=== PATIENT | female | born 1965 ===

== ENCOUNTER 2017-04-13 15:51 | Inpatient (IN) | payer MEDICAID, OTHER ==
[2017-04-13] MEDS ORDERED: Phenylephrine 10 mg/ml Inj ONE (16:09)
--- NOTE | 2017-04-13 16:16 | CP.PCM.PN ---
Subjective - Date & Time of Evaluation Date of Evaluation: 04/13/17 Time of Evaluation: 04:10 - Subjective Subjective: Code heart called/activated and Dr. Leahy was called. 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 This is the first time she has had this type of chest pain. Past medical history of diabetes and hypertension. She takes lisinopril and metformin at home. She denies family history of heart disease and states she has never had an [place] or cardiac problems in the past. She has never had a stress test in the past. No PMD. Denies drugs, tobacco, or alcohol use. EKG showed St elevations in the inferior leads. Patient was given fluids and loaded with heparin and brilinita. Patient noted to be hypotensive and bradycardic. She was given a dose of atropine. Fluid bolus started. Patient was taken to the skill labor for further intervention. Dr. Leahy was present in the skill labor.
[2017-04-13 16:20] LABS: BASO # 0.1 K/uL (0.0-0.2); BASO % 0.7 % (0.0-2.0); EOS # 0.1 K/uL (0.0-0.7); HEMOGLOBIN 13.7 g/dL (11.0-16.0); LYMPH # 4.1 K/uL (1.0-4.3); LYMPH % 30.5 % (20.0-40.0); MEAN CELL VOLUME 87.9 fL (81.0-99.0); MEAN CORPUSCULAR HGB CONC 34.2 g/dL (33.0-37.0); MEAN PLATELET VOLUME 9.3 fL (7.2-11.7); MONO # 1.3 K/uL (0.0-0.8); MONO % 9.5 % (0.0-10.0); NEUT # 7.8 K/uL (1.8-7.0); NEUT % 58.3 % (50.0-75.0); RBC 4.58 Mil/uL (3.80-5.20); RED CELL DISTRIBUTION WIDTH 13.9 % (11.5-14.5); WHITE BLOOD COUNT 13.3 K/uL (4.8-10.8)
[2017-04-13 16:24] LABS: ALBUMIN 3.9 g/dL (3.5-5.0)
[2017-04-13 16:27] LABS: ALB/GLOB RATIO 1.2 (1.0-2.1); AST/SGOT 18 U/L (14-36); BLOOD UREA NITROGEN 16 mg/dL (7-17); GFR AFRICAN-AMERICAN > 60; GFR NON-AFRICAN AMERICAN 52; INR 0.9; PROTHROMBIN TIME 10.4 SECONDS (9.7-12.2)
[2017-04-13 16:28] LABS: ALT/SGPT 32 U/L (9-52); CALCIUM 9.6 mg/dl (8.6-10.4); HDL CHOLESTEROL 33 mg/dL (30-70)
[2017-04-13] MEDS ORDERED: Lidocaine 2% Inj (20ml) ONE ×2 (16:32→16:34)
[2017-04-13] MEDS ORDERED: Iodixanol 320 MG/ML 200 ML BOTTLE IV ONE ×2 (16:35)
[2017-04-13 16:40] LABS: LDL CHOLESTEROL 207 mg/dL (0-129)
[2017-04-13 16:41] LABS: CK-MB 1.45 ng/mL (0.0-3.38)
--- NOTE | 2017-04-13 17:17 | C.PDOC ---
History Of Present Illness 52 year old female was brought to the ED by EMS with complaints of 8/10 chest pain beginning just prior to arrival. 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 EMS denies trauma or injury. Chief Complaint (Nursing): Chest Pain History Per: EMS History/Exam Limitations: no limitations Onset/Duration Of Symptoms: Mins Current Symptoms Are (Timing): Still Present Severity: Severe Pain Scale Rating Of: 8 Quality: "Pain" Associated Symptoms: denies: Nausea, Dyspnea, Diaphoresis, Syncope Recent travel outside of the [place]: No Past Medical History Reviewed: Historical Data, Nursing Documentation, Vital Signs Vital Signs: Last Vital Signs Temp 97.9 F 04/13/17 20:00 Pulse 71 04/13/17 23:40 Resp 19 04/13/17 23:40 BP 112/66 04/13/17 23:40 Pulse Ox 100 04/13/17 23:40 - Medical History PMH: HTN Family History: States: Unknown Family Hx - Social History Hx Alcohol Use: No Hx Substance Use: No - Immunization History Hx Tetanus Toxoid Vaccination: No Hx Influenza Vaccination: No Hx Pneumococcal Vaccination: No Review Of Systems Constitutional: Negative for: Fever, Chills Cardiovascular: Positive for: Chest Pain Physical Exam - Physical Exam Appears: Non-toxic, Other (Mild distress with waxing and waning chest pain ) Skin: Warm, Dry Head: Atraumatic Eye(s): bilateral: Normal Inspection, PERRL, EOMI Oral Mucosa: Moist Chest: Symmetrical, No Deformity Cardiovascular: Other (Patient is bradycardic with typical inferior wall changes ) Respiratory: Normal Breath Sounds, No Rhonchi, No Wheezing Gastrointestinal/Abdominal: Soft, No Tenderness, No Distention, No Guarding, No Rebound Neurological/Psych: Oriented x3 ED Course And Treatment - Laboratory Results Result Diagrams: 04/13/17 18:10 04/13/17 18:10 Lab Interpretation: Abnormal (+ leukocytosis, elev glu, trop neg.) ECG: Interpreted By Ks ECG Rhythm: ST/T Changes (+ acute STEMI inferior leads with reciprocal changes) ECG Interpretation: Abnormal Rate From EC O2 Sat by Pulse Oximetry: 99 Pulse Ox Interpretation: Normal Progress Note: Code Heart activated at 15:55pm. Spoke to Dr. Leahy at 16:05pm. Protocol was followed and patient left for [facility] at 16:20pm. Reevaluation Time: 16:20 Reassessment Condition: Unchanged (remains stable, moved to Cardiac [facility]) Medical Decision Making Medical Decision Making: acute IWMI Disposition Doctor Will See Patient In The: Hospital Counseled Patient/Family Regarding: Studies Performed, Diagnosis - Disposition Disposition: HOSPITALIZED Disposition Time: 16:30 Condition: CRITICAL - Clinical Impression Clinical Impression: Acute myocardial infarction - Scribe Statement The provider has reviewed the documentation as recorded by the Scrib[facility] [place] All medical record entries made by the Lev were at my direction and personally dictated by me. I have reviewed the chart and agree that the record accurately reflects my personal performance of the history, physical exam, medical decision making, and the department course for this patient. I have also personally directed, reviewed, and agree with the discharge instructions and disposition.
[2017-04-13] MEDS ORDERED: DOPamine 400mg/250ml D5W 400 MG/250 ML BAG IV ONE (17:34)
[2017-04-13] MEDS ORDERED: Sodium Chloride 0.9% 1,000 ML IV SCH (18:00)
[2017-04-13] MEDS ORDERED: Iodixanol 320 MG/ML 100 ML BOTTLE IV ONE ×2 (18:14→18:36)
[2017-04-13 18:15] LABS: HEMOGLOBIN 12.2 g/dL (11.0-16.0); MEAN CELL VOLUME 89.6 fL (81.0-99.0); MEAN CORPUSCULAR HEMOGLOBIN 28.9 pg (27.0-31.0); MEAN CORPUSCULAR HGB CONC 32.2 g/dL (33.0-37.0); MEAN PLATELET VOLUME 9.1 fL (7.2-11.7); RBC 4.22 Mil/uL (3.80-5.20); RED CELL DISTRIBUTION WIDTH 14.1 % (11.5-14.5); WHITE BLOOD COUNT 24.9 K/uL (4.8-10.8)
[2017-04-13] MEDS ORDERED: Midazolam 2 MG/2 ML VIAL ONE (18:15)
[2017-04-13 18:22] LABS: ALBUMIN 2.9 g/dL (3.5-5.0)
[2017-04-13 18:25] LABS: ALB/GLOB RATIO 1.1 (1.0-2.1); AST/SGOT 74 U/L (14-36); GFR AFRICAN-AMERICAN > 60; GFR NON-AFRICAN AMERICAN > 60
[2017-04-13 18:26] LABS: ALT/SGPT 71 U/L (9-52); BLOOD UREA NITROGEN 15 mg/dL (7-17); CALCIUM 7.5 mg/dl (8.6-10.4); MAGNESIUM 1.6 mg/dL (1.6-2.3)
[2017-04-13] MEDS ORDERED: Eptifibatide 0.75 mg/ml 75 MG/100 ML BOTTLE IV ONE (19:38)
[2017-04-13] MEDS ORDERED: Eptifibatide 20 mg/10mL Inj IVP ONE (19:38)
[2017-04-13] MEDS: Eptifibatide 0.75 mg/ml 75 MG/100 ML BOTTLE IV SCH (20:00)
[2017-04-13 20:34] VITALS: BMI 27.9
--- NOTE | 2017-04-13 21:06 | CP.PCM.CON ---
History of Present Illness - History of Present Illness History of Present Illness: PCP: None Reason for Consult: Critical care Management The Patient is being seen in the ICU post cardiac Cath. HPI: 52 years old Sinhala Female with hx of DM II, and HTN brought to the ED by the EMS with sudden unset of sharp, severe 8/10 intensity, left sided chest pain radiating down the left arm and associated with diaphoresis and SOB. The patient was working at a [employer] in [place] after immigrating from [place] recently. In The ED the patient was found to be Bradycardic in complete heart block with HR of 36/min and Hypotensive with BP of 67/42mmHg. Code heart was called because the EKG showed elevated ST in the inferior leads indicating an inferior wall STEMI. She was transferred direct to the lab scientist where cardiac cath was done by Dr Stark . The Main RCA was found to be 100% occluded and a stent was placed. The patient later developed Bradycardia with Hypotension and had to be taken back to the blood bank laboratory technician from recovery where a larger stent had to be placed and a transvenious pacemaker inserted. 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 absent: Blurred Vision, Diplopia, Floaters Ears: absent: Decreased Hearing, Ear Discharge, Ear Pain, Tinnitus Nose/Mouth/Throat: absent: Epistaxis, Nasal Congestion, Nasal Discharge, Nasal Obstruction, Nasal Trauma, Sinus Pain, Sinus Pressure - Cardiovascular Cardiovascular: Chest Pain, Diaphoresis, Dyspnea. absent: Edema, Orthopnea, Palpitations - Respiratory Respiratory: Dyspnea. absent: Cough, Wheezing, Stridor - Gastrointestinal Gastrointestinal: absent: Abdominal Pain, Constipation, Diarrhea, Nausea, Vomiting - Genitourinary Genitourinary: absent: Dysuria, Flank Pain, Hematuria, Urinary Frequency - Musculoskeletal Musculoskeletal: absent: Arthralgias, Joint Swelling, Muscle Weakness, Numbness - Integumentary Integumentary: absent: Pruritus, Rash, Skin Ulcer, Sores, Striae, Swelling - Neurological Neurological: absent: Confusion, Numbness, Focal Weakness, Tremor, Weakness - Psychiatric Psychiatric: absent: Anxiety, Depression, Panic Attacks - Endocrine Endocrine: absent: Palpitations, Polydipsia, Polyphagia, Polyuria - Hematologic/Lymphatic Hematologic: absent: Easy Bleeding, Easy Bruising Past Patient History - Infectious Disease Hx of Infectious Diseases: None - Past Medical History & Family History Past Medical History?: Yes - Past Social History Smoking Status: Never Smoked Chewing Tobacco Use: No Cigar Use: No Alcohol: None Drugs: Denies Home Situation {Lives}: With Family - CARDIAC Hx Hypertension: Yes - PULMONARY Hx Respiratory Disorders: No - NEUROLOGICAL Hx Neurological Disorder: No - HEENT Hx HEENT Problems: No - RENAL Hx Chronic Kidney Disease: No - ENDOCRINE/METABOLIC Hx Diabetes Mellitus Type 2: Yes - HEMATOLOGICAL/ONCOLOGICAL Hx Blood Disorders: No - INTEGUMENTARY Hx Dermatological Problems: No - MUSCULOSKELETAL/RHEUMATOLOGICAL Hx Musculoskeletal Disorders: No - GASTROINTESTINAL Hx Gastrointestinal Disorders: No - GENITOURINARY/GYNECOLOGICAL Hx Genitourinary Disorders: No - PSYCHIATRIC Hx Psychophysiologic Disorder: No Hx Substance Use: No - SURGICAL HISTORY Hx Surgeries: No - ANESTHESIA Hx Anesthesia: No Meds Allergies/Adverse Reactions: Allergies Allergy/AdvReac Type Severity Reaction Status Date / Time No Known Allergies Allergy Unverified 04/13/17 15:58 - Medications Medications: Current Medications Enalapril Maleate (Vasotec) 2.5 mg PO DAILY [facility] Sodium Chloride (Sodium Chloride 0.9%) 1,000 mls @ 30 mls/hr IV .Q24H [facility] Last Admin: 04/13/17 20:00 Dose: 30 mls/hr Eptifibatide (Integrilin) 75 mg in 100 mls @ 11.6 mls/hr IV .Q8H38M [facility] Stop: 04/14/17 19:16 Last Admin: 04/13/17 20:00 Dose: 11.6 mls/hr Insulin Human Regular (Novolin R) 0 unit SC ACHS [facility] PRN Reason: Protocol Rosuvastatin Calcium (Crestor) 5 mg PO HS [facility] Ticagrelor (Brilinta) 90 mg PO BID [facility] Last Admin: 04/13/17 20:00 Dose: Not Given Physical Exam - Constitutional Appears: No Acute Distress - Head Exam Head Exam: ATRAUMATIC, NORMAL INSPECTION, NORMOCEPHALIC - Eye Exam Eye Exam: EOMI, Normal appearance Pupil Exam: NORMAL ACCOMODATION, PERRL - ENT Exam ENT Exam: Mucous Membranes Moist, Normal Exam, Normal External Ear Exam, Normal Oropharynx - Neck Exam Neck exam: Positive for: Full Rom, Normal Inspection. Negative for: Lymphadenopathy, Tenderness - Respiratory Exam Respiratory Exam: Clear to Auscultation Bilateral. absent: Rales, Rhonchi, Wheezes - Cardiovascular Exam Cardiovascular Exam: REGULAR RHYTHM, RRR, +S1, +S2. absent: Gallop, Rubs - GI/Abdominal Exam GI & Abdominal Exam: Normal Bowel Sounds, Soft. absent: Mass, Organomegaly, Tenderness - Rectal Exam Rectal Exam: Deferred - Extremities Exam Extremities exam: Positive for: full ROM, normal inspection. Negative for: calf tenderness, pedal edema - Back Exam Back exam: NORMAL INSPECTION. absent: CVA tenderness (L), CVA tenderness (R) - Neurological Exam Neurological exam: Alert, CN II-XII Intact, Oriented x3, Reflexes Normal - Psychiatric Exam Psychiatric exam: Normal Affect, Normal Mood - Skin Skin Exam: Dry, Intact, Normal Color, Warm Results - Vital Signs Recent Vital Signs: Last Vital Signs Temp 97.3 F L 04/13/17 16:02 Pulse 36 L 04/13/17 16:02 Resp 16 04/13/17 16:02 BP 67/40 L 04/13/17 16:02 Pulse Ox 99 04/13/17 17:21 - Labs Result Diagrams: 04/13/17 18:10 04/13/17 18:10 Labs: Laboratory Results - last 24 hr 04/13/17 04/13/17 04/13/17 17:34 18:10 18:10 WBC 24.9 H D RBC 4.22 Hgb 12.2 Hct 37.8 MCV 89.6 MCH 28.9 MCHC 32.2 L RDW 14.1 Plt Count 268 MPV 9.1 Sodium 135 Potassium 4.8 Chloride 107 Carbon Dioxide 15 L Anion Gap 18 BUN 15 Creatinine 0.9 Est GFR ( Amer) > 60 Est GFR (Non-Af Amer) > 60 POC Glucose (mg/dL) 251 H Random Glucose 262 H Calcium 7.5 L Phosphorus 4.0 Magnesium 1.6 Total Bilirubin 0.5 AST 74 H D ALT 71 H D Alkaline Phosphatase 64 Troponin I 0.0900 Total Protein 5.6 L Albumin 2.9 L D Globulin 2.6 Albumin/Globulin Ratio 1.1 - EKG Data EKG comments: Complete Heart block 37/min with ST elevation in leads II, III, aVL - Impressions Impression: Acute inferior wall CA Assessment & Plan - Assessment and Plan (Free Text) Plan: #. Acute inferior wall STEMI with 100% stenosis RCA s/p Cardiac cath and stent placement 04/14/17 - Cardiology Dr Leahy on Consult - Continue Integrilin/ Brilinta and Crestor as per cardiology - Follow ECHO - Serial Tropon - Morphine for Pain #. Complete Heart Block with bradycardia and Hypotension due to the Acute CA s/ p transvenous pacemaker placed. - Cardiac monitoring In ICU #. DM II with Hypergycemia - HbA1c 8.2 - Liquid diet and restart Diabetic diabetic at breakfast - Regular insulin sliding scale according to accucheckl - Hold Metformin for 48hrs because of Dye used in cardiac cath - Follow Renal labs #. Neutrophylic Leukocytosis as as reaction to the CA - Follow CBC #. Hx of HTN but hypotensive because of the CA and Bradycardia. Now improved Blood pressure after the transvenous pacemaker has been inserted - Monitor BP #. DVT Prophylsaxis with SCD #. Code Status: Full - Date & Time Date: 04/13/17 Time: 21:05
[2017-04-13] MEDS ORDERED: (Novolin R) Insulin Human Regular 100 units/ml vial SC SCH (22:00)
[2017-04-13] MEDS: (Novolin R) Insulin Human Regular 100 units/ml vial SC SCH (22:00)
[2017-04-14] MEDS: Eptifibatide 0.75 mg/ml 75 MG/100 ML BOTTLE IV SCH ×5 (01:25→18:56)
[2017-04-14 04:04] LABS: BASO # 0.1 K/uL (0.0-0.2); BASO % 0.5 % (0.0-2.0); EOS # 0.1 K/uL (0.0-0.7); EOS % 0.5 % (0.0-4.0); LYMPH # 3.3 K/uL (1.0-4.3); LYMPH % 22.2 % (20.0-40.0); MEAN CELL VOLUME 88.4 fL (81.0-99.0); MEAN CORPUSCULAR HEMOGLOBIN 28.2 pg (27.0-31.0); MEAN CORPUSCULAR HGB CONC 31.9 g/dL (33.0-37.0); MEAN PLATELET VOLUME 9.5 fL (7.2-11.7); MONO # 1.5 K/uL (0.0-0.8); NEUT % 66.8 % (50.0-75.0); RBC 3.91 Mil/uL (3.80-5.20)
[2017-04-14 04:14] LABS: ALB/GLOB RATIO 1.1 (1.0-2.1); AST/SGOT 65 U/L (14-36); GFR AFRICAN-AMERICAN > 60; GFR NON-AFRICAN AMERICAN > 60
[2017-04-14 04:15] LABS: ALT/SGPT 73 U/L (9-52); BLOOD UREA NITROGEN 12 mg/dL (7-17); CALCIUM 7.7 mg/dl (8.6-10.4); MAGNESIUM 1.7 mg/dL (1.6-2.3)
[2017-04-14] MEDS: (Novolin R) Insulin Human Regular 100 units/ml vial SC SCH ×4 (08:09→21:30)
--- NOTE | 2017-04-14 08:14 | RAD ---
HISTORY: Acute PR s/p Cardiac cath and stenting COMPARISON: No prior. FINDINGS: LUNGS: Mild venous congestion. PLEURA: No significant pleural effusion identified, no pneumothorax apparent. CARDIOVASCULAR: Normal. OSSEOUS STRUCTURES: No significant abnormalities. VISUALIZED UPPER ABDOMEN: Normal. OTHER FINDINGS: None. IMPRESSION: Mild venous congestion.
--- NOTE | 2017-04-14 16:30 | CP.PCM.PN ---
Subjective - Date & Time of Evaluation Date of Evaluation: 04/14/17 Time of Evaluation: 11:00 - Subjective Subjective: Patient was seen and examined at bedside in ICU. Patient appears comfortable. Patient to doesn't completely of any chest pain. Objective - Vital Signs/Intake and Output Vital Signs (last 24 hours): Temp Pulse Resp BP Pulse Ox 97.4 F L 70 14 97/54 L 97 04/14/17 12:00 04/14/17 15:00 04/14/17 15:00 04/14/17 15:00 04/14/17 15:00 Intake and Output: 04/14/17 04/14/17 06:59 18:59 Intake Total 457.6 694.4 Output Total 1800 1355 Balance -1342.4 -660.6 - Medications Medications: Current Medications Enalapril Maleate (Vasotec) 2.5 mg PO DAILY [facility] Last Admin: 04/14/17 09:39 Dose: 2.5 mg Heparin Sodium (Porcine) (Heparin) 5,000 units SC Q12 [facility] Last Admin: 04/14/17 13:46 Dose: 5,000 units Sodium Chloride (Sodium Chloride 0.9%) 1,000 mls @ 30 mls/hr IV .Q24H [facility] Last Admin: 04/13/17 20:00 Dose: 30 mls/hr Eptifibatide (Integrilin) 75 mg in 100 mls @ 11.6 mls/hr IV .Q8H38M [facility] Stop: 04/14/17 19:16 Last Admin: 04/14/17 12:48 Dose: Not Given Insulin Human Regular (Novolin R) 0 unit SC ACHS [facility] PRN Reason: Protocol Rosuvastatin Calcium (Crestor) 5 mg PO HS [facility] Last Admin: 04/13/17 22:15 Dose: 5 mg Ticagrelor (Brilinta) 90 mg PO BID [facility] Last Admin: 04/14/17 09:39 Dose: 90 mg - Labs Labs: 04/14/17 04:01 04/14/17 04:01 PT 10.4 SECONDS (9.7-12.2) 04/13/17 16:09 INR 0.9 04/13/17 16:09 APTT 26 SECONDS (21-34) 04/13/17 16:09 - Head Exam Head Exam: ATRAUMATIC, NORMOCEPHALIC - Eye Exam Eye Exam: Normal appearance - ENT Exam ENT Exam: Mucous Membranes Moist - Neck Exam Neck Exam: Normal Inspection - Respiratory Exam Respiratory Exam: Clear to Ausculation Bilateral - Cardiovascular Exam Cardiovascular Exam: REGULAR RHYTHM, +S1, +S2 - GI/Abdominal Exam GI & Abdominal Exam: Soft. absent: Tenderness - Extremities Exam Extremities Exam: absent: Pedal Edema - Neurological Exam Neurological Exam: Alert, Oriented x3 Assessment and Plan (1) Acute myocardial infarction Assessment & Plan: Patient was a code heart. She is status post cardiac catheterization and PCI. Continue Brilinta. Patient is on Integrilin drip right now. Status: Acute (2) Hypertension Assessment & Plan: Blood pressures controlled on current medication. Patient is on enalapril. Status: Acute (3) Diabetes mellitus Assessment & Plan: Continue insulin sliding scale. Monitor blood sugars closely. Status: Acute (4) Hyperlipidemia Assessment & Plan: Patient is on Crestor. Status: Acute
--- NOTE | 2017-04-14 17:11 | CP.CCUPN ---
CCU Objective - Vital Signs / Intake & Output Vital Signs (Last 4 hours): Vital Signs Pulse Resp BP Pulse Ox 04/14/17 15:00 70 14 97/54 L 97 04/14/17 14:01 73 101/76 98 Intake and Output (Last 8hrs): Intake & Output 04/14/17 04/14/17 04/14/17 06:59 14:59 22:59 Intake Total 332.8 682.8 11.6 Output Total 1800 1155 200 Balance -1467.2 -472.2 -188.4 Intake: Intake, IV Amount 332.8 332.8 11.6 Right Antecubital 240 240 0 Right Wrist 92.8 92.8 11.6 Oral 350 Output: Urine 1800 1155 200 Urethral (Reyes) 1800 1155 Urine, Voided 200 - Medications Active Medications: Active Medications Generic Name Dose Route Start Last Admin Trade Name Freq PRN Reason Stop Dose Admin Enalapril Maleate 2.5 mg 04/14/17 10:00 04/14/17 09:39 Vasotec PO 2.5 mg DAILY ETHAN Administration Heparin Sodium (Porcine) 5,000 units 04/14/17 13:30 04/14/17 13:46 Heparin SC 5,000 units Q12 ETAHN Administration Sodium Chloride 1,000 mls @ 30 mls/hr 04/13/17 18:00 04/13/17 20:00 Sodium Chloride 0.9% IV 30 mls/hr .Q24H ETHAN Administration Eptifibatide 75 mg in 100 mls @ 11.6 mls/hr 04/13/17 19:15 04/14/17 12:48 Integrilin IV 04/14/17 19:16 Not Given .[id number] ETHAN Insulin Human Regular 0 unit 04/14/17 13:17 Novolin R SC ACHS ETHAN Protocol Rosuvastatin Calcium 5 mg 04/13/17 22:00 04/13/17 22:15 Crestor PO 5 mg HS ETHAN Administration Ticagrelor 90 mg 04/13/17 18:00 04/14/17 09:39 Brilinta PO 90 mg BID ETHAN Administration - Patient Studies Lab Studies: Lab Studies 04/14/17 04/14/17 04/14/17 Range/Units 15:57 11:23 11:01 WBC (4.8-10.8) K/uL RBC (3.80-5.20) Mil/uL Hgb (11.0-16.0) g/dL Hct (34.0-47.0) % MCV (81.0-99.0) fL MCH (27.0-31.0) pg MCHC (33.0-37.0) g/dL RDW (11.5-14.5) % Plt Count (130-400) K/uL MPV (7.2-11.7) fL Neut % (Auto) (50.0-75.0) % Lymph % (Auto) (20.0-40.0) % Nash % (Auto) (0.0-10.0) % Eos % (Auto) (0.0-4.0) % Baso % (Auto) (0.0-2.0) % Neut # (1.8-7.0) K/uL Lymph # (1.0-4.3) K/uL Nash # (0.0-0.8) K/uL Eos # (0.0-0.7) K/uL Baso # (0.0-0.2) K/uL Sodium (132-148) mmol/L Potassium (3.6-5.2) mmol/L Chloride (98-107) mmol/L Carbon Dioxide (22-30) mmol/L Anion Gap (10-20) BUN (7-17) mg/dL Creatinine (0.7-1.2) MG/DL Est GFR ( Amer) Est GFR (Non-Af Amer) POC Glucose (mg/dL) 162 H 210 H (65-110) mg/dL Random Glucose (65-105) mg/dL Calcium (8.6-10.4) mg/dl Phosphorus (2.5-4.5) mg/dL Magnesium (1.6-2.3) mg/dL Total Bilirubin (0.2-1.3) mg/dL AST (14-36) U/L ALT (9-52) U/L Alkaline Phosphatase (38-126) U/L Troponin I 3.4300 H* (0.00-0.120) ng/mL Total Protein (6.3-8.3) g/dL Albumin (3.5-5.0) g/dL Globulin (2.2-3.9) gm/dL Albumin/Globulin Ratio (1.0-2.1) 04/14/17 04/14/17 04/14/17 Range/Units 07:22 04:01 04:01 WBC 15.0 H (4.8-10.8) K/uL RBC 3.91 (3.80-5.20) Mil/uL Hgb 11.0 (11.0-16.0) g/dL Hct 34.5 (34.0-47.0) % MCV 88.4 (81.0-99.0) fL MCH 28.2 (27.0-31.0) pg MCHC 31.9 L (33.0-37.0) g/dL RDW 14.0 (11.5-14.5) % Plt Count 253 (130-400) K/uL MPV 9.5 (7.2-11.7) fL Neut % (Auto) 66.8 (50.0-75.0) % Lymph % (Auto) 22.2 (20.0-40.0) % Nash % (Auto) 10.0 (0.0-10.0) % Eos % (Auto) 0.5 (0.0-4.0) % Baso % (Auto) 0.5 (0.0-2.0) % Neut # 10.0 H (1.8-7.0) K/uL Lymph # 3.3 (1.0-4.3) K/uL Nash # 1.5 H (0.0-0.8) K/uL Eos # 0.1 (0.0-0.7) K/uL Baso # 0.1 (0.0-0.2) K/uL Sodium 137 (132-148) mmol/L Potassium 4.2 (3.6-5.2) mmol/L Chloride 104 (98-107) mmol/L Carbon Dioxide 21 L (22-30) mmol/L Anion Gap 16 (10-20) BUN 12 (7-17) mg/dL Creatinine 0.7 (0.7-1.2) MG/DL Est GFR ( Amer) > 60 Est GFR (Non-Af Amer) > 60 POC Glucose (mg/dL) 169 H (65-110) mg/dL Random Glucose 158 H (65-105) mg/dL Calcium 7.7 L (8.6-10.4) mg/dl Phosphorus 3.9 (2.5-4.5) mg/dL Magnesium 1.7 (1.6-2.3) mg/dL Total Bilirubin 0.5 (0.2-1.3) mg/dL AST 65 H (14-36) U/L ALT 73 H (9-52) U/L Alkaline Phosphatase 52 (38-126) U/L Troponin I 4.7700 H* (0.00-0.120) ng/mL Total Protein 5.6 L (6.3-8.3) g/dL Albumin 3.0 L (3.5-5.0) g/dL Globulin 2.6 (2.2-3.9) gm/dL Albumin/Globulin Ratio 1.1 (1.0-2.1) 04/13/17 04/13/17 04/13/17 Range/Units 21:20 18:10 18:10 WBC 24.9 H D (4.8-10.8) K/uL RBC 4.22 (3.80-5.20) Mil/uL Hgb 12.2 (11.0-16.0) g/dL Hct 37.8 (34.0-47.0) % MCV 89.6 (81.0-99.0) fL MCH 28.9 (27.0-31.0) pg MCHC 32.2 L (33.0-37.0) g/dL RDW 14.1 (11.5-14.5) % Plt Count 268 (130-400) K/uL MPV 9.1 (7.2-11.7) fL Neut % (Auto) (50.0-75.0) % Lymph % (Auto) (20.0-40.0) % Nash % (Auto) (0.0-10.0) % Eos % (Auto) (0.0-4.0) % Baso % (Auto) (0.0-2.0) % Neut # (1.8-7.0) K/uL Lymph # (1.0-4.3) K/uL Nash # (0.0-0.8) K/uL Eos # (0.0-0.7) K/uL Baso # (0.0-0.2) K/uL Sodium 135 (132-148) mmol/L Potassium 4.8 (3.6-5.2) mmol/L Chloride 107 (98-107) mmol/L Carbon Dioxide 15 L (22-30) mmol/L Anion Gap 18 (10-20) BUN 15 (7-17) mg/dL Creatinine 0.9 (0.7-1.2) MG/DL Est GFR ( Amer) > 60 Est GFR (Non-Af Amer) > 60 POC Glucose (mg/dL) 201 H (65-110) mg/dL Random Glucose 262 H (65-105) mg/dL Calcium 7.5 L (8.6-10.4) mg/dl Phosphorus 4.0 (2.5-4.5) mg/dL Magnesium 1.6 (1.6-2.3) mg/dL Total Bilirubin 0.5 (0.2-1.3) mg/dL AST 74 H D (14-36) U/L ALT 71 H D (9-52) U/L Alkaline Phosphatase 64 (38-126) U/L Troponin I 0.0900 (0.00-0.120) ng/mL Total Protein 5.6 L (6.3-8.3) g/dL Albumin 2.9 L D (3.5-5.0) g/dL Globulin 2.6 (2.2-3.9) gm/dL Albumin/Globulin Ratio 1.1 (1.0-2.1) 04/13/17 Range/Units 17:34 WBC (4.8-10.8) K/uL RBC (3.80-5.20) Mil/uL Hgb (11.0-16.0) g/dL Hct (34.0-47.0) % MCV (81.0-99.0) fL MCH (27.0-31.0) pg MCHC (33.0-37.0) g/dL RDW (11.5-14.5) % Plt Count (130-400) K/uL MPV (7.2-11.7) fL Neut % (Auto) (50.0-75.0) % Lymph % (Auto) (20.0-40.0) % Nash % (Auto) (0.0-10.0) % Eos % (Auto) (0.0-4.0) % Baso % (Auto) (0.0-2.0) % Neut # (1.8-7.0) K/uL Lymph # (1.0-4.3) K/uL Nash # (0.0-0.8) K/uL Eos # (0.0-0.7) K/uL Baso # (0.0-0.2) K/uL Sodium (132-148) mmol/L Potassium (3.6-5.2) mmol/L Chloride (98-107) mmol/L Carbon Dioxide (22-30) mmol/L Anion Gap (10-20) BUN (7-17) mg/dL Creatinine (0.7-1.2) MG/DL Est GFR ( Amer) Est GFR (Non-Af Amer) POC Glucose (mg/dL) 251 H (65-110) mg/dL Random Glucose (65-105) mg/dL Calcium (8.6-10.4) mg/dl Phosphorus (2.5-4.5) mg/dL Magnesium (1.6-2.3) mg/dL Total Bilirubin (0.2-1.3) mg/dL AST (14-36) U/L ALT (9-52) U/L Alkaline Phosphatase (38-126) U/L Troponin I (0.00-0.120) ng/mL Total Protein (6.3-8.3) g/dL Albumin (3.5-5.0) g/dL Globulin (2.2-3.9) gm/dL Albumin/Globulin Ratio (1.0-2.1) Laboratory Results - last 24 hr 04/13/17 04/13/17 04/13/17 17:34 18:10 18:10 WBC 24.9 H D RBC 4.22 Hgb 12.2 Hct 37.8 MCV 89.6 MCH 28.9 MCHC 32.2 L RDW 14.1 Plt Count 268 MPV 9.1 Neut % (Auto) Lymph % (Auto) Nash % (Auto) Eos % (Auto) Baso % (Auto) Neut # Lymph # Nash # Eos # Baso # Sodium 135 Potassium 4.8 Chloride 107 Carbon Dioxide 15 L Anion Gap 18 BUN 15 Creatinine 0.9 Est GFR ( Amer) > 60 Est GFR (Non-Af Amer) > 60 POC Glucose (mg/dL) 251 H Random Glucose 262 H Calcium 7.5 L Phosphorus 4.0 Magnesium 1.6 Total Bilirubin 0.5 AST 74 H D ALT 71 H D Alkaline Phosphatase 64 Troponin I 0.0900 Total Protein 5.6 L Albumin 2.9 L D Globulin 2.6 Albumin/Globulin Ratio 1.1 04/13/17 04/14/17 04/14/17 21:20 04:01 04:01 WBC 15.0 H RBC 3.91 Hgb 11.0 Hct 34.5 MCV 88.4 MCH 28.2 MCHC 31.9 L RDW 14.0 Plt Count 253 MPV 9.5 Neut % (Auto) 66.8 Lymph % (Auto) 22.2 Nash % (Auto) 10.0 Eos % (Auto) 0.5 Baso % (Auto) 0.5 Neut # 10.0 H Lymph # 3.3 Nash # 1.5 H Eos # 0.1 Baso # 0.1 Sodium 137 Potassium 4.2 Chloride 104 Carbon Dioxide 21 L Anion Gap 16 BUN 12 Creatinine 0.7 Est GFR ( Amer) > 60 Est GFR (Non-Af Amer) > 60 POC Glucose (mg/dL) 201 H Random Glucose 158 H Calcium 7.7 L Phosphorus 3.9 Magnesium 1.7 Total Bilirubin 0.5 AST 65 H ALT 73 H Alkaline Phosphatase 52 Troponin I 4.7700 H* Total Protein 5.6 L Albumin 3.0 L Globulin 2.6 Albumin/Globulin Ratio 1.1 04/14/17 04/14/17 04/14/17 07:22 11:01 11:23 WBC RBC Hgb Hct MCV MCH MCHC RDW Plt Count MPV Neut % (Auto) Lymph % (Auto) Nash % (Auto) Eos % (Auto) Baso % (Auto) Neut # Lymph # Nash # Eos # Baso # Sodium Potassium Chloride Carbon Dioxide Anion Gap BUN Creatinine Est GFR ( Amer) Est GFR (Non-Af Amer) POC Glucose (mg/dL) 169 H 210 H Random Glucose Calcium Phosphorus Magnesium Total Bilirubin AST ALT Alkaline Phosphatase Troponin I 3.4300 H* Total Protein Albumin Globulin Albumin/Globulin Ratio 04/14/17 15:57 WBC RBC Hgb Hct MCV MCH MCHC RDW Plt Count MPV Neut % (Auto) Lymph % (Auto) Nash % (Auto) Eos % (Auto) Baso % (Auto) Neut # Lymph # Nash # Eos # Baso # Sodium Potassium Chloride Carbon Dioxide Anion Gap BUN Creatinine Est GFR ( Amer) Est GFR (Non-Af Amer) POC Glucose (mg/dL) 162 H Random Glucose Calcium Phosphorus Magnesium Total Bilirubin AST ALT Alkaline Phosphatase Troponin I Total Protein Albumin Globulin Albumin/Globulin Ratio EKG/Cardiology Studies: Cardiology / EKG Studies 04/13/17 18:01 ELECTROCARDIOGRAM Q8H Comment: Mode Of Transportation: Reason For Exam: post stemi 04/14/17 02:01 ELECTROCARDIOGRAM Q8H Comment: Mode Of Transportation: Reason For Exam: post stemi 04/14/17 10:01 ELECTROCARDIOGRAM Q8H Comment: Mode Of Transportation: Reason For Exam: post stemi 04/14/17 16:54 EKG [ELECTROCARDIOGRAM] Stat Comment: Mode Of Transportation: PORTABLE Reason For Exam: pacemaker function Fingerstick Blood Sugar Results: 210 Critical Care Progress Note - Nutrition Nutrition: Nutrition Category Date Time Status Diabetic [Consistent Carbohydrate] [DIET] Diets 04/14/17 Breakfast Active Assessment/Plan (1) Acute myocardial infarction Assessment and plan: 52 years old English Female with hx of DM II, and HTN. presented with inferior wall STEMI, status post RCA stent placement. Neuro: Alert and oriented 3 Pulm: Breathing spontaneously on room air CV: Hemodynamically stable. continue rosuvastatin. Hem: No acute issues. On Integrilin drip, and Ticagrelor Renal: No acute issues, urine output within normal limits, will monitor. Endo: DM type II with hyperglycemia, restarting metformin, short acting insulin sliding scale for coverage. GI: Heart healthy diet ID: No acute issues DVT proph - heparin subcutaneous GI proph - not currently indicated reyes for strict I/O's during acute illness Code status - full code Critical Care Time spent 35 minutes Multi-disciplinary rounds were performed with house staff, nursing, speech therapy, respiratory therapy, pharmacy and nutrition with integrated input from the primary team/attending and other consulting services. The documented time is cumulative and includes review of patient data/exams/labs/chart review and examination of the patient on rounds and throughout the day; time is exclusive of any procedures or teaching time. Current Visit: Yes Status: Acute
--- NOTE | 2017-04-14 17:29 | CARD ---
APPROVED REPORT EXAM: Two-dimensional and M-mode echocardiogram with Doppler and color Doppler. INDICATION Acute MD M-Mode DIMENSIONS RVDd1.64 (2.1-3.2cm)Left Atrium (MM)2.98 (2.5-4.0cm) IVSd0.67 (0.7-1.1cm)Aortic Root2.46 (2.2-3.7cm) LVDd4.40 (4.0-5.6cm)Aortic Cusp Exc.1.15 (1.5-2.0cm) PWd0.94 (0.7-1.1cm)FS (%) 37 % LVDs2.79 (2.0-3.8cm)LVEF (%)67 (>50%) Mitral Valve MV E Bnvlouue356.8cm/sMV A Pxirwpkt59.6cm/sE/A ratio1.3 TDI E/Lateral E'0.0E/Medial E'0.0 Tricuspid Valve TR Peak [id number]/sTR Peak Gr.[id number] LEFT VENTRICLE The left ventricle is normal size. There is normal left ventricular wall thickness. The left ventricular function is normal. The left ventricular ejection fraction is within the normal range. There is normal LV segmental wall motion. The left ventricular diastolic function is normal. The left ventricular diastolic function is normal. RIGHT VENTRICLE The right ventricle is normal size. There is normal right ventricular wall thickness. The right ventricular systolic function is normal. ATRIA The left atrium size is normal. The right atrium size is normal. AORTIC VALVE The aortic valve is not well visualized. There is no aortic valvular stenosis. MITRAL VALVE The mitral valve is mildly thickened. There is no mitral valve stenosis. There is no mitral valve regurgitation noted. TRICUSPID VALVE There is trace tricuspid regurgitation. GREAT VESSELS The aortic root is normal in size. The IVC was not visualized. PERICARDIAL EFFUSION There is no pericardial effusion. <Conclusion> poor Echo window The left ventricle is normal size. There is normal left ventricular wall thickness. The left ventricular function is normal. The left ventricular ejection fraction is within the normal range. There is normal LV segmental wall motion.
[2017-04-15 06:40] LABS: BASO % 0.3 % (0.0-2.0); EOS # 0.2 K/uL (0.0-0.7); EOS % 1.4 % (0.0-4.0); HEMOGLOBIN 12.2 g/dL (11.0-16.0); LYMPH # 2.3 K/uL (1.0-4.3); LYMPH % 19.4 % (20.0-40.0); MEAN CELL VOLUME 88.1 fL (81.0-99.0); MEAN CORPUSCULAR HEMOGLOBIN 29.6 pg (27.0-31.0); MEAN CORPUSCULAR HGB CONC 33.6 g/dL (33.0-37.0); MEAN PLATELET VOLUME 9.7 fL (7.2-11.7); MONO # 1.2 K/uL (0.0-0.8); MONO % 10.3 % (0.0-10.0); NEUT # 8.3 K/uL (1.8-7.0); NEUT % 68.6 % (50.0-75.0); RBC 4.13 Mil/uL (3.80-5.20); RED CELL DISTRIBUTION WIDTH 13.5 % (11.5-14.5); WHITE BLOOD COUNT 12.1 K/uL (4.8-10.8)
[2017-04-15 07:00] LABS: ALB/GLOB RATIO 1.2 (1.0-2.1); ALBUMIN 3.2 g/dL (3.5-5.0); ALT/SGPT 62 U/L (9-52); AST/SGOT 47 U/L (14-36); BLOOD UREA NITROGEN 11 mg/dL (7-17); CALCIUM 8.5 mg/dl (8.6-10.4); GFR AFRICAN-AMERICAN > 60; GFR NON-AFRICAN AMERICAN > 60; MAGNESIUM 1.8 mg/dL (1.6-2.3)
[2017-04-15] MEDS: (Novolin R) Insulin Human Regular 100 units/ml vial SC SCH ×4 (08:37→21:47)
--- NOTE | 2017-04-15 16:28 | CP.PCM.PN ---
Subjective - Date & Time of Evaluation Date of Evaluation: 04/15/17 Time of Evaluation: 12:00 - Subjective Subjective: Patient was seen and examined at bedside in ICU. Patient is status post cardiac catheterization and PCI. Transvenous pacer in place. Patient appears comfortable and denies any chest pain, palpitation, dizziness, nausea, vomiting. Objective - Vital Signs/Intake and Output Vital Signs (last 24 hours): Temp Pulse Resp BP Pulse Ox 97.8 F 106 H 13 106/55 L 100 04/15/17 12:00 04/15/17 15:01 04/15/17 15:01 04/15/17 15:01 04/15/17 14:01 Intake and Output: 04/15/17 04/15/17 06:59 18:59 Intake Total 371.6 240 Output Total 1300 Balance 371.6 -1060 - Medications Medications: Current Medications Enalapril Maleate (Vasotec) 2.5 mg PO DAILY [facility] Last Admin: 04/15/17 10:04 Dose: 2.5 mg Heparin Sodium (Porcine) (Heparin) 5,000 units SC Q12 [facility] Last Admin: 04/15/17 10:00 Dose: 5,000 units Insulin Human Regular (Novolin R) 0 unit SC ACHS [facility] PRN Reason: Protocol Last Admin: 04/15/17 11:44 Dose: 3 unit Rosuvastatin Calcium (Crestor) 5 mg PO HS [facility] Last Admin: 04/14/17 21:45 Dose: 5 mg Ticagrelor (Brilinta) 90 mg PO BID [facility] Last Admin: 04/15/17 10:00 Dose: 90 mg - Labs Labs: 04/15/17 06:31 04/15/17 06:31 PT 10.4 SECONDS (9.7-12.2) 04/13/17 16:09 INR 0.9 04/13/17 16:09 APTT 26 SECONDS (21-34) 04/13/17 16:09 - Head Exam Head Exam: ATRAUMATIC, NORMOCEPHALIC - Eye Exam Eye Exam: Normal appearance - ENT Exam ENT Exam: Mucous Membranes Moist - Neck Exam Neck Exam: Full ROM - Respiratory Exam Respiratory Exam: Clear to Ausculation Bilateral. absent: Chest Wall Tenderness , Rhonchi, Wheezes - Cardiovascular Exam Cardiovascular Exam: REGULAR RHYTHM, +S1, +S2 - GI/Abdominal Exam GI & Abdominal Exam: Soft. absent: Tenderness - Extremities Exam Extremities Exam: absent: Pedal Edema Assessment and Plan (1) Acute myocardial infarction Assessment & Plan: Patient status post to RCA stent. Patient is currently on statin, Brilinta and Vasotec. Patient developed hypotension and bradycardia because of inferior wall IN. Patient is currently on transvenous pacing. Pacing wires to be removed as per cardiology recommendation. Status: Acute (2) Hypertension Assessment & Plan: Patient developed hypotension with inferior wall IN. Currently patient is on Vasotec and blood pressures controlled. Status: Acute (3) Diabetes mellitus Assessment & Plan: Continue insulin sliding scale. Status: Acute (4) Hyperlipidemia Assessment & Plan: On statin. Status: Acute
[2017-04-16] MEDS: (Novolin R) Insulin Human Regular 100 units/ml vial SC SCH ×4 (09:24→21:43)
--- NOTE | 2017-04-16 13:14 | CARD ---
APPROVED REPORT EKG Measurement Heart [id number] <Conclusion> Age and gender specific ECG analysis Sinus rhythm with complete heart block and Junctional bradycardia ST elevation, consider inferior injury or acute infarct ACUTE AK / STEMI Consider right ventricular involvement in acute inferior infarct Abnormal ECG
--- NOTE | 2017-04-16 14:41 | CARDCATH ---
BRIEF CLINICAL HISTORY: The patient, who is 52-year-old female who originally came from [facility]. She started having chest pain and 911 called in. The patient had an EKG done which showed she was having complete heart block with inferior wall ND. The patient was transferred to the [facility] ([facility] where she was consented for the cardiac catheterization and primary angioplasty. PROCEDURE TECHNIQUE: After obtaining the consent, the patient was prepared for the cardiac catheterization. Her right groin was used for access and access was completed without any complication. Before the arterial access, venous access was obtained and 7-Togolese sheath was introduced into the right femoral vein and temporary pacemaker was placed in the right ventricle and the patient was paced and it was checked that the temporary pacemaker is working properly. A 6-Togolese JR4 guide catheter with side-hole catheter was used to visualize the right coronary artery system and intervention. A 6-Togolese JR diagnostic catheter was used to visualize the left coronary artery system. A 6-Togolese pigtail catheter was used to assess the left ventricle and diastolic pressure and LV function. FINDINGS: The patient had 99% mid RCA with LOURDES 1 flow. The patient had the circumflex about 40% to 50%. The patient had LAD about 30% to 40% in the mid portion. The patient had normal LV systolic function. Given the nature of the disease, angioplasty of the RCA was performed. Initial dilatation of the 99% lesion was performed with 2.0 x 12 mm balloon followed by deployment of 2.25 x 15 KAYCE. There was LOURDES 3 flow and the patient tolerated the procedure very well. Because of the higher ACT, Togolese sheaths were left in. The patient completely asymptomatic and transferred to the [facility] area where she had 2 episodes of vomiting, she sat up and became vasovagal and dropped her pressure and heart rate. The patient was brought back to the cardiac catheterization lab and angiogram of the right coronary artery was performed, which was showing that there was some development of thrombosis. Mild haziness was seen suggestive of thrombosis. The patient had another stent 2.5 x 23 stent was deployed and with LOURDES 3 flow, multiple pictures were taken. Sheaths were left in. The patient was transferred to the ICU without any complication. PLAN: The patient will be continued on Integrilin for 24 hours. She will continue on Brilinta, aspirin, beta-blockers, DIGNA inhibitors. The patient will have an echocardiogram done in the morning. in the CCU. Alfie Leahy MD
--- NOTE | 2017-04-16 16:02 | CP.PCM.DIS ---
<FelixShagufta - Last Filed: 04/16/17 16:12> Provider - Provider Date of Admission: 04/13/17 16:21 Attending physician: Alfie Leahy MD Time Spent in preparation of Discharge (in minutes): 55 Hospital Course - Lab Results Lab Results: Micro Results 04/13/17 Unknown Naris MRSA Culture (Admit) - Final MRSA NOT DETECTED Most Recent Lab Values WBC 12.1 K/uL (4.8-10.8) H 04/15/17 06:31 RBC 4.13 Mil/uL (3.80-5.20) 04/15/17 06:31 Hgb 12.2 g/dL (11.0-16.0) 04/15/17 06:31 Hct 36.4 % (34.0-47.0) 04/15/17 06:31 MCV 88.1 fL (81.0-99.0) 04/15/17 06:31 MCH 29.6 pg (27.0-31.0) 04/15/17 06:31 MCHC 33.6 g/dL (33.0-37.0) 04/15/17 06:31 RDW 13.5 % (11.5-14.5) 04/15/17 06:31 Plt Count 259 K/uL (130-400) 04/15/17 06:31 MPV 9.7 fL (7.2-11.7) 04/15/17 06:31 Neut % (Auto) 68.6 % (50.0-75.0) 04/15/17 06:31 Lymph % (Auto) 19.4 % (20.0-40.0) L 04/15/17 06:31 [place] % (Auto) 10.3 % (0.0-10.0) H 04/15/17 06:31 Eos % (Auto) 1.4 % (0.0-4.0) 04/15/17 06:31 Baso % (Auto) 0.3 % (0.0-2.0) 04/15/17 06:31 Neut # 8.3 K/uL (1.8-7.0) H 04/15/17 06:31 Lymph # 2.3 K/uL (1.0-4.3) 04/15/17 06:31 [place] # 1.2 K/uL (0.0-0.8) H 04/15/17 06:31 Eos # 0.2 K/uL (0.0-0.7) 04/15/17 06:31 Baso # 0.0 K/uL (0.0-0.2) 04/15/17 06:31 PT 10.4 SECONDS (9.7-12.2) 04/13/17 16:09 INR 0.9 04/13/17 16:09 APTT 26 SECONDS (21-34) 04/13/17 16:09 Sodium 136 mmol/L (132-148) 04/15/17 06:31 Potassium 4.0 mmol/L (3.6-5.2) 04/15/17 06:31 Chloride 100 mmol/L (98-107) 04/15/17 06:31 Carbon Dioxide 25 mmol/L (22-30) 04/15/17 06:31 Anion Gap 14 (10-20) 04/15/17 06:31 BUN 11 mg/dL (7-17) 04/15/17 06:31 Creatinine 0.6 MG/DL (0.7-1.2) L 04/15/17 06:31 Est GFR ( Amer) > 60 04/15/17 06:31 Est GFR (Non-Af Amer) > 60 04/15/17 06:31 POC Glucose (mg/dL) 130 mg/dL (65-110) H 04/16/17 11:25 Random Glucose 138 mg/dL (65-105) H 04/15/17 06:31 Hemoglobin A1c 8.2 % (4.2-6.5) H 04/13/17 16:09 Calcium 8.5 mg/dl (8.6-10.4) L 04/15/17 06:31 Phosphorus 3.7 mg/dL (2.5-4.5) 04/15/17 06:31 Magnesium 1.8 mg/dL (1.6-2.3) 04/15/17 06:31 Total Bilirubin 0.4 mg/dL (0.2-1.3) 04/15/17 06:31 AST 47 U/L (14-36) H D 04/15/17 06:31 ALT 62 U/L (9-52) H 04/15/17 06:31 Alkaline Phosphatase 62 U/L (38-126) 04/15/17 06:31 Total Creatine Kinase 95 U/L (30-135) 04/13/17 16:09 CK-MB (Mass) 1.45 ng/mL (0.0-3.38) 04/13/17 16:09 Troponin I 3.4300 ng/mL (0.00-0.120) H* 04/14/17 11:01 Troponin I, Quant 0.0520 ng/mL (0.00-0.120) 04/13/17 16:09 Total Protein 5.8 g/dL (6.3-8.3) L 04/15/17 06:31 Albumin 3.2 g/dL (3.5-5.0) L 04/15/17 06:31 Globulin 2.6 gm/dL (2.2-3.9) 04/15/17 06:31 Albumin/Globulin Ratio 1.2 (1.0-2.1) 04/15/17 06:31 Triglycerides 194 mg/dL (0-149) H 04/13/17 16:09 Cholesterol 250 mg/dL (0-199) H 04/13/17 16:09 LDL Cholesterol Direct 207 mg/dL (0-129) H 04/13/17 16:09 HDL Cholesterol 33 mg/dL (30-70) 04/13/17 16:09 Blood Type A POSITIVE 04/13/17 16:09 Antibody Screen Negative 04/13/17 16:09 - Hospital Course Hospital Course: Upon Admission: PCP: None Reason for Consult: Critical care Management The Patient is being seen in the ICU post cardiac Cath. HPI: 52 years old [place] Female with hx of DM II, and HTN brought to the ED by the EMS with sudden unset of sharp, severe 8/10 intensity, left sided chest pain radiating down the left arm and associated with diaphoresis and SOB. The patient was working at a [employer] in [place] after immigrating from [place] recently. In The ED the patient was found to be Bradycardic in complete heart block with HR of 36/min and Hypotensive with BP of 67/42mmHg. Code heart was called because the EKG showed elevated ST in the inferior leads indicating an inferior wall STEMI. She was transferred direct to the label printer where cardiac cath was done by Dr Stark . The Main RCA was found to be 100% occluded and a stent was placed. 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 Patient was evaluated by Cardiology and underwent cardiac catherization. Patient had 99% mid RCA occlusion. Angioplasty was performed. Patient's cardiac catherization site was monitored over the weekend as well as serial troponins and EKGs. All are within WNL, patient is stable for discharge. Patient will be discharged with plavix instead of brilinta due to cost. Patient will be seen in the [facility] for routine follow up and to follow up with a instrument checker. This is a short summary of the patient's hospital course, please see EMR for the full record. Discharge Exam - Head Exam Head Exam: ATRAUMATIC, NORMOCEPHALIC - Eye Exam Eye Exam: EOMI, Normal appearance, PERRL Pupil Exam: NORMAL ACCOMODATION - ENT Exam ENT Exam: Mucous Membranes Moist - Respiratory Exam Respiratory Exam: Clear to PA & Lateral, NORMAL BREATHING PATTERN. absent: Decreased Breath Sounds - Cardiovascular Exam Cardiovascular Exam: REGULAR RHYTHM, RRR, +S1, +S2 - GI/Abdominal Exam GI & Abdominal Exam: Normal Bowel Sounds, Soft. absent: Distended, Tenderness - Extremities Exam Extremities exam: normal inspection, pedal pulses present - Neurological Exam Neurological exam: Alert, CN II-XII Intact, Oriented x3 - Psychiatric Exam Psychiatric exam: Normal Affect, Normal Mood - Skin Skin Exam: Dry, Intact, Normal Color, Warm Discharge Plan - Follow Up Plan Condition: STABLE Disposition: HOME/ ROUTINE Instructions: Myocardial Infarction (DC), How to Stop Smoking (GEN), Heart Healthy Diet (DC), Diabetes Mellitus Type 2 in Adults (GEN), Cholesterol and Your Health (GEN), Meal Planning with the Plate Method (DC) Additional Instructions: You had a heart attack. You underwent a cardiac catherization for a 99% blockage in an artery in your heart (RCA). You now have a stent in your heart keeping that artery open. You must take the following medications EVERY DAY, for the rest of your life : aspirin 81mg by mouth daily, lisinopril 20mg by mouth daily, vasotec 2.5mg by mouth daily, plavix 75mg by mouth daily, crestor 10mg by mouth daily and metformin 850mg by mouth daily. Please go to the basement of this [facility] and apply for [facility] care. After applying for [facility] care and getting accepted, you can start being seen in our clinic. Our clinic is on the basement floor [facility]. Please continue with your regular lifestyle. Start to modify your diet and begin exercising. Please return to the ED if your symptoms return. Tuviste un infarto. Se someti a penelope cateterizacin cardiaca para un bloqueo del 99% en penelope arteria del corazn (RCA). Ahora tiene un stent en osullivan corazn manteniendo abierta la arteria. Debe ambrosio los siguientes medicamentos TODOS LOS SCHNEIDER, por el tab de osullivan jeronimo: aspirina 81mg por va oral todos los schneider, lisinopril 20mg por va oral todos los schneider, vasotec 2,5mg por va oral todos los schneider, plavix 75mg por va oral diaria, crestor 10mg por va oral diaria y metformin 850mg por Diariamente. Por favor, vaya al [facility] y solicite asistencia caritativa. Despus de solicitar atencin caritativa y ser aceptado, puede comenzar a ser visto en nuestra clnica. Nuestra clnica est [facility]. Por favor contine con osullivan estilo de jeronimo regular. Comience a modificar osullivan dieta y comenzar a hacer ejercicio. Por favor regrese a la DE si joe sntomas regresan. Referrals: [facility] at [facility] [Outside] <Andrade Trevizo - Last Filed: 04/16/17 16:54> Provider - Provider Date of Admission: 04/13/17 16:21 Attending physician: Alfie Leahy MD Hospital Course - Lab Results Lab Results: Micro Results 04/13/17 Unknown Naris MRSA Culture (Admit) - Final MRSA NOT DETECTED Most Recent Lab Values WBC 12.1 K/uL (4.8-10.8) H 04/15/17 06:31 RBC 4.13 Mil/uL (3.80-5.20) 04/15/17 06:31 Hgb 12.2 g/dL (11.0-16.0) 04/15/17 06:31 Hct 36.4 % (34.0-47.0) 04/15/17 06:31 MCV 88.1 fL (81.0-99.0) 04/15/17 06:31 MCH 29.6 pg (27.0-31.0) 04/15/17 06:31 MCHC 33.6 g/dL (33.0-37.0) 04/15/17 06:31 RDW 13.5 % (11.5-14.5) 04/15/17 06:31 Plt Count 259 K/uL (130-400) 04/15/17 06:31 MPV 9.7 fL (7.2-11.7) 04/15/17 06:31 Neut % (Auto) 68.6 % (50.0-75.0) 04/15/17 06:31 Lymph % (Auto) 19.4 % (20.0-40.0) L 04/15/17 06:31 [place] % (Auto) 10.3 % (0.0-10.0) H 04/15/17 06:31 Eos % (Auto) 1.4 % (0.0-4.0) 04/15/17 06:31 Baso % (Auto) 0.3 % (0.0-2.0) 04/15/17 06:31 Neut # 8.3 K/uL (1.8-7.0) H 04/15/17 06:31 Lymph # 2.3 K/uL (1.0-4.3) 04/15/17 06:31 [place] # 1.2 K/uL (0.0-0.8) H 04/15/17 06:31 Eos # 0.2 K/uL (0.0-0.7) 04/15/17 06:31 Baso # 0.0 K/uL (0.0-0.2) 04/15/17 06:31 PT 10.4 SECONDS (9.7-12.2) 04/13/17 16:09 INR 0.9 04/13/17 16:09 APTT 26 SECONDS (21-34) 04/13/17 16:09 Sodium 136 mmol/L (132-148) 04/15/17 06:31 Potassium 4.0 mmol/L (3.6-5.2) 04/15/17 06:31 Chloride 100 mmol/L (98-107) 04/15/17 06:31 Carbon Dioxide 25 mmol/L (22-30) 04/15/17 06:31 Anion Gap 14 (10-20) 04/15/17 06:31 BUN 11 mg/dL (7-17) 04/15/17 06:31 Creatinine 0.6 MG/DL (0.7-1.2) L 04/15/17 06:31 Est GFR ( Amer) > 60 04/15/17 06:31 Est GFR (Non-Af Amer) > 60 04/15/17 06:31 POC Glucose (mg/dL) 130 mg/dL (65-110) H 04/16/17 11:25 Random Glucose 138 mg/dL (65-105) H 04/15/17 06:31 Hemoglobin A1c 8.2 % (4.2-6.5) H 04/13/17 16:09 Calcium 8.5 mg/dl (8.6-10.4) L 04/15/17 06:31 Phosphorus 3.7 mg/dL (2.5-4.5) 04/15/17 06:31 Magnesium 1.8 mg/dL (1.6-2.3) 04/15/17 06:31 Total Bilirubin 0.4 mg/dL (0.2-1.3) 04/15/17 06:31 AST 47 U/L (14-36) H D 04/15/17 06:31 ALT 62 U/L (9-52) H 04/15/17 06:31 Alkaline Phosphatase 62 U/L (38-126) 04/15/17 06:31 Total Creatine Kinase 95 U/L (30-135) 04/13/17 16:09 CK-MB (Mass) 1.45 ng/mL (0.0-3.38) 04/13/17 16:09 Troponin I 3.4300 ng/mL (0.00-0.120) H* 04/14/17 11:01 Troponin I, Quant 0.0520 ng/mL (0.00-0.120) 04/13/17 16:09 Total Protein 5.8 g/dL (6.3-8.3) L 04/15/17 06:31 Albumin 3.2 g/dL (3.5-5.0) L 04/15/17 06:31 Globulin 2.6 gm/dL (2.2-3.9) 04/15/17 06:31 Albumin/Globulin Ratio 1.2 (1.0-2.1) 04/15/17 06:31 Triglycerides 194 mg/dL (0-149) H 04/13/17 16:09 Cholesterol 250 mg/dL (0-199) H 04/13/17 16:09 LDL Cholesterol Direct 207 mg/dL (0-129) H 04/13/17 16:09 HDL Cholesterol 33 mg/dL (30-70) 04/13/17 16:09 Blood Type A POSITIVE 04/13/17 16:09 Antibody Screen Negative 04/13/17 16:09 Attending/Attestation - Attestation I have personally seen and examined this patient.: Yes I have fully participated in the care of the patient.: Yes I have reviewed all pertinent clinical information, including history, physical exam and plan: Yes Notes (Text): Medical attending: Patient was seen and examined by me, agree with the above note by medical referral coordinator. Patient was reporting that she is feeling well. She denied having any chest pain , she denied palpitations, denied shortness of breath. As reported above in the resident note the patient is here [place] from [place]. She has only been here for about a week before this happened. We explained to the patient that she's continued to follow-up at [facility]. We also emphasized to her the importance of taking her medication in particular because she is just had stenting done Thank you very much, Andrade Trevizo
[2017-04-17] MEDS: (Novolin R) Insulin Human Regular 100 units/ml vial SC SCH ×2 (08:44→12:49)
[2017-04-17 09:05] VITALS: RESP 20; TEMP 98.2; O2SAT 98
[2017-04-17] MEDS ORDERED: Pantoprazole 40 mg EC Tab PO SCH (10:00)
[2017-04-17 10:48] VITALS: PULSE 80
[2017-04-17 11:01] VITALS: BP 123/81
[2017-04-17 14:04] LABS: BASO % 0.3 % (0.0-2.0); EOS # 0.3 K/uL (0.0-0.7); EOS % 2.1 % (0.0-4.0); HEMOGLOBIN 14.7 g/dL (11.0-16.0); LYMPH # 2.4 K/uL (1.0-4.3); LYMPH % 15.4 % (20.0-40.0); MEAN CELL VOLUME 88.4 fL (81.0-99.0); MEAN CORPUSCULAR HEMOGLOBIN 29.7 pg (27.0-31.0); MEAN CORPUSCULAR HGB CONC 33.6 g/dL (33.0-37.0); MEAN PLATELET VOLUME 9.8 fL (7.2-11.7); MONO # 1.4 K/uL (0.0-0.8); MONO % 8.8 % (0.0-10.0); NEUT # 11.5 K/uL (1.8-7.0); NEUT % 73.4 % (50.0-75.0); RBC 4.95 Mil/uL (3.80-5.20); RED CELL DISTRIBUTION WIDTH 13.4 % (11.5-14.5); WHITE BLOOD COUNT 15.7 K/uL (4.8-10.8)
[2017-04-17 14:18] LABS: ALBUMIN 4.1 g/dL (3.5-5.0)
[2017-04-17 14:21] LABS: ALB/GLOB RATIO 1.2 (1.0-2.1); AST/SGOT 23 U/L (14-36); GFR AFRICAN-AMERICAN > 60; GFR NON-AFRICAN AMERICAN > 60
[2017-04-17 14:22] LABS: ALT/SGPT 48 U/L (9-52); BLOOD UREA NITROGEN 18 mg/dL (7-17)
[2017-04-17 14:23] LABS: MAGNESIUM 1.7 mg/dL (1.6-2.3)
--- NOTE | 2017-04-18 06:23 | CARD ---
APPROVED REPORT EKG Measurement Heart [id number] [id number] <Conclusion> Normal sinus rhythm Low voltage QRS Possible Inferior infarct, age undetermined Cannot rule out Anterior infarct, age undetermined Abnormal ECG
--- NOTE | 2017-04-18 06:26 | CARD ---
APPROVED REPORT EKG Measurement Heart [id number] <Conclusion> Normal sinus rhythm Normal ECG
--- NOTE | 2017-04-18 06:27 | CARD ---
APPROVED REPORT EKG Measurement Heart [id number] [place] [id number] <Conclusion> Normal sinus rhythm Cannot rule out Anterior infarct, age undetermined Abnormal ECG
--- NOTE | 2017-04-18 19:32 | CARD ---
APPROVED REPORT EKG Measurement Heart [id number] <Conclusion> Normal sinus rhythm Normal ECG
== END 2017-04-17 14:21 | disposition home or self-care (01) | DRG 247 ==
LOC: C.ER 15:51 → C.9I 16:21 → C.5T 04-16 14:44
PROVIDERS: ADMIT Internal Medicine; ATTEND Internal Medicine
PROC: 027035Z Dilation of Coronary Artery, One Artery with Two Drug-eluting Intraluminal Devices, Percutaneous Approach (ICD-10-PCS; principal; 2017-04-13)
PROC: 5A1223Z Performance of Cardiac Pacing, Continuous (ICD-10-PCS; 2017-04-13)
PROC: 4A023N8 Measurement of Cardiac Sampling and Pressure, Bilateral, Percutaneous Approach (ICD-10-PCS; 2017-04-13)
PROC: B2151ZZ Fluoroscopy of Left Heart using Low Osmolar Contrast (ICD-10-PCS; 2017-04-13)
PROC: B2111ZZ Fluoroscopy of Multiple Coronary Arteries using Low Osmolar Contrast (ICD-10-PCS; 2017-04-13)
PROC: B2101ZZ Fluoroscopy of Single Coronary Artery using Low Osmolar Contrast (ICD-10-PCS; 2017-04-13)
PROC: B2141ZZ Fluoroscopy of Right Heart using Low Osmolar Contrast (ICD-10-PCS; 2017-04-13)
DX: I21.19 ST elevation (STEMI) myocardial infarction involving other coronary artery of inferior wall (principal); I44.2 Atrioventricular block, complete; I95.9 Hypotension, unspecified; E11.65 Type 2 diabetes mellitus with hyperglycemia; R00.1 Bradycardia, unspecified; I25.10 Atherosclerotic heart disease of native coronary artery without angina pectoris; I10 Essential (primary) hypertension; Z79.4 Long term (current) use of insulin; Z79.84 Long term (current) use of oral hypoglycemic drugs; E78.5 Hyperlipidemia, unspecified

== ENCOUNTER 2017-04-18 07:20 | Inpatient (IN) | payer MEDICAID, OTHER ==
[2017-04-18 07:21] VITALS: BMI 27.9
[2017-04-18] MEDS ORDERED: DOPamine 400mg/250ml D5W IV ONE (07:29)
[2017-04-18] MEDS ORDERED: Sodium Chloride 0.9% 2,000 ML IV STA (07:38)
[2017-04-18] MEDS ORDERED: Heparin25000 units/250ml 1/2NS 250 ML IV STA (07:38)
[2017-04-18] MEDS ORDERED: Aspirin 325 mg EC Tablets PO STA (07:38)
[2017-04-18] MEDS ORDERED: DiphenhydrAMINE 50 mg/ml Inj ONE (07:43)
[2017-04-18] MEDS ORDERED: Phenylephrine 10 mg/ml Inj ONE (07:44)
--- NOTE | 2017-04-18 07:46 | C.PDOC ---
History Of Present Illness 52 Y/O FEMALE PRESENTS TO ER S/P CODE HEART ON 04/13/17, WITH RECURRENT CHEST PAIN 5-10 MINS PRIOR TO ARRIVAL. FIRST EPISODE OF CHEST PAIN SINCE PROCEDURE. CURRENT PAIN IS SIMILAR TO PRIOR. PER OLD RECORDS, S/P 2 STENTS RCA, DISCHARGED ON ASPIRIN, BRILLINTA, BETA BLOCKERS AND DIGNA. ALL SHE TOOK TODAY PER PT IS LISINOPRIL. Time Seen by Provider: 04/18/17 07:37 Chief Complaint (Nursing): Chest Pain History Per: Patient, Family ( AT BEDSIDE) History/Exam Limitations: no limitations Onset/Duration Of Symptoms: Mins Current Symptoms Are (Timing): Still Present Quality: "Pain" Past Medical History Reviewed: Historical Data, Nursing Documentation, Vital Signs Vital Signs: Last Vital Signs Temp 98.5 F 04/18/17 07:31 Pulse 39 L 04/18/17 07:31 Resp 14 04/18/17 07:31 BP Pulse Ox 99 04/18/17 07:56 - Medical History PMH: HTN Family History: States: Unknown Family Hx - Social History Hx Alcohol Use: No Hx Substance Use: No - Immunization History Hx Tetanus Toxoid Vaccination: No Hx Influenza Vaccination: No Hx Pneumococcal Vaccination: No Review Of Systems Review Of Systems: ROS cannot be obtained secondary to pt's inabilty to answer questions. Physical Exam - Physical Exam Appears: Non-toxic, Other (MODERATE DISTRESS) Skin: Diaphoretic (CLAMMY SKIN) Head: Atraumatic, Normacephalic Chest: Symmetrical Cardiovascular: Rhythm Regular (SINUS MOHINI) Respiratory: Normal Breath Sounds, No Rales, No Rhonchi, No Wheezing Gastrointestinal/Abdominal: Soft, No Tenderness Back: Normal Inspection Extremity: Normal ROM, No Pedal Edema, Other (WEAK PALPABLE RADIAL PULSES, NO PERIPHERAL EDEMA) Pulses: Left Radial: Decreased, Right Radial: Decreased Neurological/Psych: Oriented x3, Normal Speech, Normal Cognition ED Course And Treatment - Laboratory Results Result Diagrams: 04/18/17 07:40 ECG: Interpreted By Me Interpretation Of ECG: STEMI II, III, AVF W RECIP CHANGES Rate From EC O2 Sat by Pulse Oximetry: 99 Pulse Ox Interpretation: Normal - Radiology CXR: Interpreted by Me CXR Interpretation: Yes: Other (NO CHANGE FROM PRIOR) Progress - Re-Evaluation Re-evaluation Note: 04/18/17 07:32 CASE DISCUSSED W/ DR. FAIR CODE HEART SLAB POLISHER. HEPARIN, BRILINTA, ASA, EMERGENT CATH. 04/18/17 07:[address] AMES. STATES PT S/P RCA STENT X 2 ON 04/13. DC ON BRILINTA, BETA BLOCKERS, DIGNA DISCUSSED WITH DR. Samaria DANIEL IN ER. WILL ADMIT 04/18/17 07:44 PERSISTENT SINUS MOHINI AT 35, SYSTOLIC AT 60. AWAKE MOD DIST WILL GIVE ATROPINE AND PRESSOR SUPPORT - Data Reviewed Data Reviewed: Lab, Diagnostic imaging, EKG, Old records - Critical Care Citical Care: Excluding Proc Time Critical Care Time: 30 minutes - Continuity of Care Discussed patient case with:: On-call PMD-pt unassigned, Other Discussed pt. case with vocational rehab consultant/specialty: Cardiology Disposition Counseled Patient/Family Regarding: Diagnosis, Smoking Cessation - Disposition Disposition: HOSPITALIZED Disposition Time: 07:45 Condition: CRITICAL - POA Present On Arrival: Poor Glycemic Control - Clinical Impression Clinical Impression: STEMI (ST elevation myocardial infarction), Hypotension, Bradycardia - Scribe Statement The provider has reviewed the documentation as recorded by the Lev PERAZA Provider Attestation: All medical record entries made by the Lev were at my direction and personally dictated by me. I have reviewed the chart and agree that the record accurately reflects my personal performance of the history, physical exam, medical decision making, and the department course for this patient. I have also personally directed, reviewed, and agree with the discharge instructions and disposition.
[2017-04-18 07:49] LABS: BASO # 0.1 K/uL (0.0-0.2); BASO % 0.6 % (0.0-2.0); EOS # 0.4 K/uL (0.0-0.7); EOS % 2.5 % (0.0-4.0); HEMATOCRIT 39.8 % (34.0-47.0); LYMPH # 3.9 K/uL (1.0-4.3); LYMPH % 24.4 % (20.0-40.0); MEAN CELL VOLUME 88.2 fL (81.0-99.0); MEAN CORPUSCULAR HEMOGLOBIN 29.9 pg (27.0-31.0); MEAN CORPUSCULAR HGB CONC 33.9 g/dL (33.0-37.0); MEAN PLATELET VOLUME 9.7 fL (7.2-11.7); MONO # 1.7 K/uL (0.0-0.8); MONO % 10.3 % (0.0-10.0); RED CELL DISTRIBUTION WIDTH 13.8 % (11.5-14.5); WHITE BLOOD COUNT 16.1 K/uL (4.8-10.8)
[2017-04-18] MEDS ORDERED: Heparin25000 units/250ml 1/2NS 25,000 UNITS/250 ML BAG IV PRN (08:00)
[2017-04-18] MEDS ORDERED: Iohexol 350mgl/ml 50 ML ONE (08:11)
[2017-04-18] MEDS ORDERED: Iohexol 350mg/ml 100 ML ONE (08:11)
--- NOTE | 2017-04-18 08:18 | RAD ---
PROCEDURE: CHEST RADIOGRAPH, 1 VIEW HISTORY: chest pain COMPARISON: None available. FINDINGS: LUNGS: Multiple overlying devices, limit evaluation. Diffuse increased interstitial lung markings which may represent edema and or infiltrate. Clinical correlation. Right hilar prominence. PLEURA: No pneumothorax or pleural fluid seen. CARDIOVASCULAR: Normal. OSSEOUS STRUCTURES: No significant abnormalities. VISUALIZED UPPER ABDOMEN: Normal. OTHER FINDINGS: None. IMPRESSION: Multiple overlying devices, limit evaluation. Diffuse increased interstitial lung markings which may represent edema and or infiltrate. Clinical correlation. Right hilar prominence.
[2017-04-18] MEDS ORDERED: Eptifibatide 0.75 mg/ml 75 MG/100 ML BOTTLE IV ONE (08:27)
[2017-04-18] MEDS ORDERED: Eptifibatide 20 mg/10mL Inj IVP ONE (08:27)
--- NOTE | 2017-04-18 09:12 | PCM.OP ---
Operative Report - Operative Report Date of Surgery/Procedure: 04/18/17 Time of Surgery/Procedure: 08:24 Surgeon: Nicanor Harris MD [facility] Anesthesia/Sedation: Local lidocaine Pre-Operative Diagnosis: Acute Inferior STEMI Post-Operative Diagnosis: Subacute thrombosis of recent RCA stent Indication for Surgery: Inferior STEMI Operative Findings: RCA: 99% thrombotic occlusion of prior stents. LM: patent. LAD: Mild diffuse disease (patent). LCX: mild-mod disease patent Procedure/Operation Description: RFA: access 6FR, standarg [id number], JL4 diagnostic. PTCA of prior RCA stent with reduction of stenosis from 99% to 0%. KAYCE placement at distal edge of prior RCA stent with LOURDES 3 flow post. Estimated Blood Loss: <10cc Blood Replaced: No Sponge/Instrument Count: N/A Complications: None Discharge & Condition: Stable to Tx to ICU
--- NOTE | 2017-04-18 09:24 | CP.PCM.PN ---
Subjective - Date & Time of Evaluation Date of Evaluation: 04/18/17 Time of Evaluation: 09:18 - Subjective Subjective: 52 y/o had a recent inferior STEMI 4 days ago and had PCI to RCA with KAYCE. Imddeiately same day had reocclusion of stent Rx with POBA. Was dc'd home yesterday and presents with similar CP and reocclusion of stents. Compliance to meds is questionable. Patient was hypotensive and required dopamine and neosynephrine along with atropine: durin the procedure, although mentating well. POBA was done to prior RCA stent and an additional stent was placed for some outflow narrowing. Overall LOURDES [address] resolution was observed. Plan: > ASA 81 daily > Brillinta 90 BID > Integrilin for 12 hours > High dose statin > Continue pressor support for now: Ultimately will need DIGNA-I and BB for optimal CAD/SC therapy. > Plan repeat echo to eval LV/RV function > RFA sheath will be removed later with manual pressure to obtain hemostasis. Objective - Vital Signs/Intake and Output Vital Signs (last 24 hours): Temp Pulse Resp BP Pulse Ox 98.5 F 39 L 18 99 04/18/17 07:31 04/18/17 07:31 04/18/17 07:50 04/18/17 08:00 - Medications Medications: Current Medications Sodium Chloride (Sodium Chloride 0.9%) 2,000 mls @ 1,000 mls/hr IV .Q2H STA Stop: 04/18/17 09:37 Last Admin: 04/18/17 07:44 Dose: 1,000 mls/hr Heparin Sodium/Sodium Chloride (Heparin 41269 Units/250ml 1/2 Normal Saline) 25 ,000 units in 250 mls @ 9.362 mls/hr IV .Q24H PRN; Protocol; 12 UNITS/KG/HR PRN Reason: ADJUST RATE PER PROTOCOL Last Admin: 04/18/17 07:45 Dose: 12 units/kg/hr, 9.362 mls/hr - Labs Labs: PT 11.2 SECONDS (9.7-12.2) 04/18/17 07:40 INR 1.0 04/18/17 07:40 APTT 27 SECONDS (21-34) 04/18/17 07:40
--- NOTE | 2017-04-18 10:34 | CP.PCM.CON ---
<Tatum Davison - Last Filed: 04/18/17 14:48> History of Present Illness - History of Present Illness History of Present Illness: CC: Chest pain 52 year old female with medical history of HTN, Diabetes, s/p Code Heart and 2 RCA stents, presents to the ED with chest pain that radiates to her left arm. Patient was recently discharged from the hospital (04/13/17-04/17/17) for inferior STEMI, s/p code heart and s/p two RCA stents (as per hospital notes). Patient is a poor historian and reports having a past medical history of DM, HTN, and "circulation problems". Patient is consulted s/p third KAYCE stent by Dr. Harris, who performed the procedure today for an occlusion of distal edge of prior RCA stents. Patient is on aspirin, brillinta, integrilin for 12 hours, pressor support, and a statin. Patient currently denies having chest pain, left arm pain , palpitations, sob, nausea, vomiting, diarrhea, fevers, dysuria, and headaches. PMD: denies (She recently moved from [facility] and does not have a PMD. ) PMHx: DM, HTN, MT (4 days ago), RCA stents x3 SurgHx: of 4 children FamHx: Stroke and DM SocHx: 1/2ppd for 30+ years; denies alcohol and drug use; recently moved from Allergies: NKDA Medications: Metformin & Lisinopril (as per patient); [id number] PO, Brillinta 90mg PO BID, Crestor 10mg PO HS, Integrelin for 12 hours Review of Systems - Constitutional Constitutional: absent: Fever, Headache - Cardiovascular Cardiovascular: absent: Chest Pain, Dyspnea, Palpitations - Respiratory Respiratory: absent: Cough, Dyspnea - Gastrointestinal Gastrointestinal: absent: Abdominal Pain, Constipation, Diarrhea, Nausea, Vomiting - Genitourinary Genitourinary: absent: Dysuria, Hematuria, Pyuria - Musculoskeletal Musculoskeletal: absent: Numbness, Tingling - Neurological Neurological: absent: Dizziness, Numbness, Headaches, Tingling - Endocrine Endocrine: absent: Palpitations Past Patient History - Infectious Disease Hx of Infectious Diseases: None - Past Medical History & Family History Past Medical History?: Yes - Past Social History Smoking Status: Never Smoked - CARDIAC Hx Hypertension: Yes - PULMONARY Hx Respiratory Disorders: No - NEUROLOGICAL Hx Neurological Disorder: No - HEENT Hx HEENT Problems: No - ENDOCRINE/METABOLIC Hx Endocrine Disorders: Yes Hx Diabetes Mellitus Type 2: Yes - HEMATOLOGICAL/ONCOLOGICAL Hx Blood Disorders: No - INTEGUMENTARY Hx Dermatological Problems: No - MUSCULOSKELETAL/RHEUMATOLOGICAL Hx Musculoskeletal Disorders: No - GASTROINTESTINAL Hx Gastrointestinal Disorders: No - GENITOURINARY/GYNECOLOGICAL Hx Genitourinary Disorders: No - PSYCHIATRIC Hx Substance Use: No - SURGICAL HISTORY Hx Surgeries: Yes Hx Cardiac Catheterization: Yes Hx Coronary Stent: Yes (x2) - ANESTHESIA Hx Anesthesia: No Meds Allergies/Adverse Reactions: Allergies Allergy/AdvReac Type Severity Reaction Status Date / Time No Known Allergies Allergy Verified 04/18/17 07:31 - Medications Medications: Current Medications Aspirin (Ecotrin) 81 mg PO DAILY [facility] Heparin Sodium/Sodium Chloride (Heparin 30017 Units/250ml 1/2 Normal Saline) 25 ,000 units in 250 mls @ 9.362 mls/hr IV .Q24H PRN; Protocol; 12 UNITS/KG/HR PRN Reason: ADJUST RATE PER PROTOCOL Last Admin: 04/18/17 07:45 Dose: 12 units/kg/hr, 9.362 mls/hr Rosuvastatin Calcium (Crestor) 10 mg PO HS [facility] Ticagrelor (Brilinta) 90 mg PO BID [facility] Physical Exam - Head Exam Head Exam: ATRAUMATIC, NORMAL INSPECTION - Eye Exam Eye Exam: EOMI, Normal appearance - ENT Exam ENT Exam: Mucous Membranes Moist - Respiratory Exam Respiratory Exam: Clear to Auscultation Bilateral, NORMAL BREATHING PATTERN. absent: Rales, Rhonchi, Wheezes - Cardiovascular Exam Cardiovascular Exam: REGULAR RHYTHM, +S1, +S2. absent: Bradycardia, Tachycardia , Systolic Murmur - GI/Abdominal Exam GI & Abdominal Exam: Normal Bowel Sounds, Soft. absent: Mass, Tenderness - Extremities Exam Extremities exam: Positive for: normal inspection, pedal pulses present. Negative for: calf tenderness, pedal edema - Neurological Exam Neurological exam: Alert, Oriented x3 - Psychiatric Exam Psychiatric exam: Normal Affect, Normal Mood - Skin Skin Exam: Dry, Intact, Normal Color, Warm Results - Vital Signs Recent Vital Signs: Last Vital Signs Temp 98.5 F 04/18/17 07:31 Pulse 39 L 04/18/17 07:31 Resp 18 04/18/17 07:50 BP Pulse Ox 99 08/09/17 08:00 - Labs Result Diagrams: 04/18/17 07:40 04/18/17 10:34 Assessment & Plan (1) STEMI (ST elevation myocardial infarction) Assessment and Plan: 52 year old female with medical history of HTN, Diabetes, s/p Code Heart and 2 RCA stents, presents to the ED with chest pain that radiates to her left arm. Patient was recently discharged from the hospital (04/13/17-04/17/17) for STEMI, s/ p code heart and s/p two RCA stents (as per hospital notes). Patient is a poor historian and reports having a past medical history of DM, HTN, and " circulation problems". Patient is consulted s/p third KAYCE stent by Dr. Harris, who performed the procedure today for an occlusion of distal edge of prior RCA stents. Patient is on aspirin, brillinta, integrilin for 12 hours, pressor support, and a statin. Continue to monitor. Neuro: alert, oriented x3 Pulm: no acute issues CV: inferior STEMI, RCA stents x3 - s/p 3rd stent (occlusion of the prior 2 stents) - Door Installer: Dr. Harris - ASA 81mg PO, Brillinta 90mg PO BID, Crestor 10mg PO HS - Integrilin for a total of 12 hours. - ECHO: pending official report; EF 65-70% Endo: Hx of DM - Monitor blood glucose, Accuchecks GI: no acute issues Heme: no acute issues - Monitor H/H Renal: no acute issues - Monitor renal function MSK: no acute issues ID: no acute issues Prophylaxis: - DVT: heparin drip - GI: pepcid 20mg po daily Status: Acute <Cristi Mcdonald - Last Filed: 04/18/17 15:22> Meds - Medications Medications: Current Medications Aspirin (Ecotrin) 81 mg PO DAILY [facility] Famotidine (Pepcid) 20 mg PO DAILY [facility] Heparin Sodium/Sodium Chloride (Heparin 26964 Units/250ml 1/2 Normal Saline) 25 ,000 units in 250 mls @ 9.362 mls/hr IV .Q24H PRN; Protocol; 12 UNITS/KG/HR PRN Reason: ADJUST RATE PER PROTOCOL Last Admin: 04/18/17 07:45 Dose: 12 units/kg/hr, 9.362 mls/hr Pneumococcal Polyvalent Vaccine (Pneumovax 23 Vaccine) 0.5 ml IM .ONCE ONE Stop: 04/21/17 10:01 Rosuvastatin Calcium (Crestor) 10 mg PO HS [facility] Ticagrelor (Brilinta) 90 mg PO BID [facility] Results - Vital Signs Recent Vital Signs: Last Vital Signs Temp 98.2 F 04/18/17 10:00 Pulse 66 04/18/17 15:00 Resp 18 04/18/17 15:00 BP 88/46 L 04/18/17 14:31 Pulse Ox 98 04/18/17 15:00 - Labs Result Diagrams: 04/18/17 07:40 04/18/17 10:34 Labs: Laboratory Results - last 24 hr 04/18/17 10:34 Sodium 128 L Potassium 5.4 H Chloride 100 Carbon Dioxide 12 L Anion Gap 21 H BUN 16 Creatinine 0.7 Est GFR ( Amer) > 60 Est GFR (Non-Af Amer) > 60 Random Glucose 241 H Calcium 6.8 L Total Bilirubin 0.4 AST 68 H D ALT 36 Alkaline Phosphatase 53 Total Protein 5.9 L Albumin 3.2 L D Globulin 2.7 Albumin/Globulin Ratio 1.2 Attending/Attestation - Attestation I have personally seen and examined this patient.: Yes I have fully participated in the care of the patient.: Yes I have reviewed all pertinent clinical information: Yes Notes (Text): 04/18/17 15:21 Patient seen and examined in the intensive care unit. Case discussed with STAFF in the morning rounds. s/p third KAYCE stent by Dr. Harris, who performed the procedure today for an occlusion of distal edge of prior RCA stents. Patient is on aspirin, brillinta, integrilin for 12 hours, Continue pressors for now status post fluid resuscitation
[2017-04-18 10:52] LABS: ALB/GLOB RATIO 1.2 (1.0-2.1); ALKALINE PHOSPHATASE 53 U/L (38-126); ALT/SGPT 36 U/L (9-52); AST/SGOT 68 U/L (14-36); BILIRUBIN,TOTAL 0.4 mg/dL (0.2-1.3); BLOOD UREA NITROGEN 16 mg/dL (7-17); CALCIUM 6.8 mg/dl (8.6-10.4); CARBON DIOXIDE 12 mmol/L (22-30); CHLORIDE 100 mmol/L (98-107); GFR AFRICAN-AMERICAN > 60; GLUCOSE,RANDOM 241 mg/dL (65-105); SODIUM 128 mmol/L (132-148); TOTAL PROTEIN 5.9 g/dL (6.3-8.3)
[2017-04-18 10:59] LABS: POTASSIUM 5.4 mmol/L (3.6-5.2)
--- NOTE | 2017-04-18 11:31 | CP.PCM.HP ---
History of Present Illness - History of Present Illness History of Present Illness: PGY-1 H&P for Dr. Samaria Caldera This is a 52 year old female with PMHx HTN, DM, CAD s/p DESx2 who presented to the hospital as a Code Heart. Per patient's , patient was on the bus coming to [facility] and the [facility] for medications. On the bus, patient felt diaphoretic and unwell about 15 minutes prior to arrival. Patient was discharged yesterday 04/18/17 after coming in for the same complaint last week including similar EKG changes. Dr. Leahy did cardiac catheterization on Sunday04/13/17 where he placed 2 KAYCE in the RCA. Patient presents today with re-occlusion of the RCA circulation. Dr. Holt was on hand for catheterization today 04/18/17 where he reopened the occluded segments and placed a 3rd stent. At the time of patient encounter, patient now resting in the ICU complaining only of feeling tremulous after the procedure. PMHx: HTN, DM, CAD s/p stents x 3 now PSHx: PCI on 04/13/17 and 04/18/17 Allergies: NKDA Social: Denies tobacco, alcohol, drugs. 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 Family Hx: mother with DM. Father aged in the 70s from stroke. Home meds: aspirin 81mg by mouth daily, lisinopril 20mg by mouth daily, vasotec 2.5mg by mouth daily, plavix 75mg by mouth daily, crestor 10mg by mouth daily and metformin 850mg by mouth daily No advanced directive or living will Proxy: Juan Luis Stuart () [phone] Present on Admission - Present on Admission Any Indicators Present on Admission: No Review of Systems - Constitutional Constitutional: Excessive Sweating. absent: Headache, Weakness - EENT Eyes: absent: Change in Vision Ears: absent: Decreased Hearing Nose/Mouth/Throat: absent: Nasal Congestion - Cardiovascular Cardiovascular: absent: Chest Pain, Palpitations - Respiratory Respiratory: absent: Cough, Dyspnea - Gastrointestinal Gastrointestinal: Nausea. absent: Abdominal Pain, Vomiting - Genitourinary Genitourinary: absent: Dysuria - Musculoskeletal Musculoskeletal: absent: Neck Pain, Numbness, Tingling - Integumentary Integumentary: absent: Rash - Neurological Neurological: Tremor. absent: Headaches, Weakness - Endocrine Endocrine: absent: Palpitations Past Patient History - Infectious Disease Hx of Infectious Diseases: None - Past Medical History & Family History Past Medical History?: Yes - Past Social History Smoking Status: Never Smoked - CARDIAC Hx Hypertension: Yes - PULMONARY Hx Respiratory Disorders: No - NEUROLOGICAL Hx Neurological Disorder: No - HEENT Hx HEENT Problems: No - ENDOCRINE/METABOLIC Hx Endocrine Disorders: Yes Hx Diabetes Mellitus Type 2: Yes - HEMATOLOGICAL/ONCOLOGICAL Hx Blood Disorders: No - INTEGUMENTARY Hx Dermatological Problems: No - MUSCULOSKELETAL/RHEUMATOLOGICAL Hx Musculoskeletal Disorders: No - GASTROINTESTINAL Hx Gastrointestinal Disorders: No - GENITOURINARY/GYNECOLOGICAL Hx Genitourinary Disorders: No - PSYCHIATRIC Hx Substance Use: No - SURGICAL HISTORY Hx Surgeries: Yes Hx Cardiac Catheterization: Yes Hx Coronary Stent: Yes (x2) - ANESTHESIA Hx Anesthesia: No Meds Allergies/Adverse Reactions: Allergies Allergy/AdvReac Type Severity Reaction Status Date / Time No Known Allergies Allergy Verified 04/18/17 07:31 Physical Exam - Head Exam Head Exam: ATRAUMATIC, NORMAL INSPECTION, NORMOCEPHALIC - Eye Exam Eye Exam: EOMI, PERRL - ENT Exam ENT Exam: Mucous Membranes Moist - Respiratory Exam Respiratory Exam: Clear to Auscultation Bilateral - Cardiovascular Exam Cardiovascular Exam: REGULAR RHYTHM, +S1, +S2 - GI/Abdominal Exam GI & Abdominal Exam: Normal Bowel Sounds, Soft. absent: Tenderness - Extremities Exam Extremities exam: Negative for: pedal edema, tenderness - Neurological Exam Neurological exam: Alert, CN II-XII Intact, Oriented x3 - Skin Skin Exam: Dry, Intact, Normal Color, Warm Results - Vital Signs Recent Vital Signs: Last Vital Signs Temp 98.5 F 04/18/17 07:31 Pulse 88 04/18/17 10:40 Resp 12 04/18/17 10:40 BP 107/64 04/18/17 10:36 Pulse Ox 99 04/18/17 10:40 - Labs Result Diagrams: 04/18/17 07:40 04/18/17 10:34 Labs: Laboratory Results - last 24 hr 04/18/17 10:34 Sodium 128 L Potassium 5.4 H Chloride 100 Carbon Dioxide 12 L Anion Gap 21 H BUN 16 Creatinine 0.7 Est GFR ( Amer) > 60 Est GFR (Non-Af Amer) > 60 Random Glucose 241 H Calcium 6.8 L Total Bilirubin 0.4 AST 68 H D ALT 36 Alkaline Phosphatase 53 Total Protein 5.9 L Albumin 3.2 L D Globulin 2.7 Albumin/Globulin Ratio 1.2 Assessment & Plan - Assessment and Plan (Free Text) Plan: Coronary Artery Disease s/p KAYCE x 2 Patient previously admitted with Inferior wall WI Reocclusion and infarction of RCA territory. Opened and a 3rd stent placed by Dr. Harris on 04/18/17. History of Hypertension Lisinopril 20 mg PO daily Vasotec 2.5 mg PO daily History of Diabetes Hemoglobin A1C on previous admission 8.2 Will hold Metformin for now due to WI ISS History of Hyperlipidemia Lipid Panel on : LDL 207, HDL 33, Total cholesterol 250, Triglycerides 194 Crestor 10 mg PO qHS Leukocytosis Likely a stress response since there is no left shift or fevers Prophylactic Measure TSH, free T4, CMP, CBC, Mag, Phos Case discussed with Dr. Samaria Mendez PGY-1 - Date & Time Date: 04/18/17 Time: 08:00
[2017-04-18] MEDS ORDERED: Pneumococcal 23-Valent Vaccine IM ONE (13:15)
[2017-04-18] MEDS ORDERED: Eptifibatide 0.75 mg/ml 75 MG/100 ML BOTTLE IV SCH (16:30)
--- NOTE | 2017-04-18 18:43 | CARD ---
APPROVED REPORT EXAM: Two-dimensional and M-mode echocardiogram with Doppler and color Doppler. Other Information Quality : FairRhythm : Technically limited study due to body habitus. INDICATION Non STEMI Hypotension/ Bradycardia/ Reocclusion of RCA Stents RISK FACTORS Hypertension Hyperlipidemia M-Mode DIMENSIONS RVDd2.19 (2.1-3.2cm)Left Atrium (MM)2.84 (2.5-4.0cm) IVSd0.73 (0.7-1.1cm)Aortic Root2.60 (2.2-3.7cm) LVDd4.63 (4.0-5.6cm)Aortic Cusp Exc.1.85 (1.5-2.0cm) PWd0.75 (0.7-1.1cm)FS (%) 38 % LVDs2.89 (2.0-3.8cm)LVEF (%)68 (>50%) Mitral Valve MV E Kxovudcm54.3cm/sMV A Jzufakvh68.7cm/sE/A ratio0.9 TDI E/Lateral E'0.0E/Medial E'0.0 Tricuspid Valve TR Peak Uottktsw224si/sTR Peak Gr.[id number] LEFT VENTRICLE The left ventricle is normal size. There is normal left ventricular wall thickness. The left ventricular function is normal. The left ventricular ejection fraction is within the normal range. There is normal LV segmental wall motion. Transmitral Doppler flow pattern is abnormal. RIGHT VENTRICLE The right ventricle is normal size. ATRIA The left atrium size is normal. The right atrium size is normal. AORTIC VALVE The aortic valve is normal in structure. MITRAL VALVE Mitral regurgitation is trace. TRICUSPID VALVE There is trace tricuspid regurgitation. <Conclusion> Normal LV systolic function. Diastolic dysfunction. Normal chamber size. Trace MR. Trace to mild TR.
--- NOTE | 2017-04-19 03:35 | CP.PCM.CON ---
History of Present Illness - History of Present Illness History of Present Illness: 52 year old female with a hitory of HTN, DM, CAD s/p recent STEMI s/p PCI with KAYCE complicated by occlusion of stent (same day), readmitted with chest pain found to have reocclusion of stent requiring PCI and another stent placement, with concern for hypercoagulable state. The patient reports to compliance with her medication however is not the greatest historian in regards to her medical history. She denies abnormal bleeding and clotting in the past. Past medical history: HTN, DM, CAD Past surgical history: None Family history: Denies hematologic and oncologic problems Social history: 1/2ppd x 30 years, denies alcohol, and illicit drug use. Allergies: NKA Review of systems: All remaining review of systems including HEENT, cardiovacular, respiratory, gastrointestinal, genitoruinary, musculoskeletal, dermatologic, neurologic, and psychiatric are negative unless mentioned in the HPI. Past Patient History - Infectious Disease Hx of Infectious Diseases: None - Past Medical History & Family History Past Medical History?: Yes - Past Social History Smoking Status: Never Smoked - CARDIAC Hx Hypertension: Yes - PULMONARY Hx Respiratory Disorders: No - NEUROLOGICAL Hx Neurological Disorder: No - HEENT Hx HEENT Problems: No - RENAL Hx Chronic Kidney Disease: No - ENDOCRINE/METABOLIC Hx Endocrine Disorders: Yes Hx Diabetes Mellitus Type 2: Yes - HEMATOLOGICAL/ONCOLOGICAL Hx Blood Disorders: No - INTEGUMENTARY Hx Dermatological Problems: No - MUSCULOSKELETAL/RHEUMATOLOGICAL Hx Musculoskeletal Disorders: No - GASTROINTESTINAL Hx Gastrointestinal Disorders: No - GENITOURINARY/GYNECOLOGICAL Hx Genitourinary Disorders: No - PSYCHIATRIC Hx Substance Use: No - SURGICAL HISTORY Hx Surgeries: Yes Hx Cardiac Catheterization: Yes Hx Coronary Stent: Yes (x2) - ANESTHESIA Hx Anesthesia: No Meds Allergies/Adverse Reactions: Allergies Allergy/AdvReac Type Severity Reaction Status Date / Time No Known Allergies Allergy Verified 04/18/17 07:31 - Medications Medications: Current Medications Aspirin (Ecotrin) 81 mg PO DAILY [facility] Famotidine (Pepcid) 20 mg PO DAILY [facility] Heparin Sodium/Sodium Chloride (Heparin 84877 Units/250ml 1/2 Normal Saline) 25 ,000 units in 250 mls @ 9.362 mls/hr IV .Q24H PRN; Protocol; 12 UNITS/KG/HR PRN Reason: ADJUST RATE PER PROTOCOL Last Admin: 04/18/17 07:45 Dose: 12 units/kg/hr, 9.362 mls/hr Pneumococcal Polyvalent Vaccine (Pneumovax 23 Vaccine) 0.5 ml IM .ONCE ONE Stop: 04/21/17 10:01 Rosuvastatin Calcium (Crestor) 10 mg PO HS [facility] Last Admin: 04/18/17 21:31 Dose: 10 mg Ticagrelor (Brilinta) 90 mg PO BID [facility] Physical Exam - Head Exam Head Exam: ATRAUMATIC - Eye Exam Eye Exam: Normal appearance - ENT Exam ENT Exam: Mucous Membranes Dry - Respiratory Exam Respiratory Exam: NORMAL BREATHING PATTERN - Cardiovascular Exam Cardiovascular Exam: +S1, +S2 - GI/Abdominal Exam GI & Abdominal Exam: Normal Bowel Sounds - Extremities Exam Extremities exam: Positive for: normal inspection - Neurological Exam Neurological exam: Oriented x3 - Psychiatric Exam Psychiatric exam: Normal Affect, Normal Mood - Skin Skin Exam: Warm Results - Vital Signs Recent Vital Signs: Last Vital Signs Temp 98.6 F 04/19/17 00:00 Pulse 71 04/19/17 02:00 Resp 15 04/19/17 02:00 BP 91/51 L 04/19/17 01:36 Pulse Ox 96 04/19/17 02:00 - Labs Result Diagrams: 04/18/17 07:40 04/18/17 10:34 Labs: Laboratory Results - last 24 hr 04/18/17 04/18/17 04/18/17 10:34 16:17 21:12 Sodium 128 L Potassium 5.4 H Chloride 100 Carbon Dioxide 12 L Anion Gap 21 H BUN 16 Creatinine 0.7 Est GFR ( Amer) > 60 Est GFR (Non-Af Amer) > 60 POC Glucose (mg/dL) 192 H 185 H Random Glucose 241 H Calcium 6.8 L Total Bilirubin 0.4 AST 68 H D ALT 36 Alkaline Phosphatase 53 Total Protein 5.9 L Albumin 3.2 L D Globulin 2.7 Albumin/Globulin Ratio 1.2 Assessment & Plan (1) Hypercoagulable state Assessment and Plan: I will rule out an inherited thrombophilia given the patients repeat occlusion of her coronary stents. Other possibilities for occlusion would be noncompliance with antiplatelet therapy; I have discussed at length the importance of taking her dual antiplatelet therapy once discharged Status: Acute (2) Leukocytosis Assessment and Plan: likely reactive Thank you for this interesting consult. Status: Acute
[2017-04-19 06:19] LABS: BASO % 0.1 % (0.0-2.0); EOS # 0.2 K/uL (0.0-0.7); EOS % 1.4 % (0.0-4.0); HEMATOCRIT 33.7 % (34.0-47.0); LYMPH # 1.9 K/uL (1.0-4.3); LYMPH % 13.9 % (20.0-40.0); MEAN CELL VOLUME 88.6 fL (81.0-99.0); MEAN CORPUSCULAR HEMOGLOBIN 30.3 pg (27.0-31.0); MEAN CORPUSCULAR HGB CONC 34.1 g/dL (33.0-37.0); MEAN PLATELET VOLUME 9.5 fL (7.2-11.7); MONO # 1.3 K/uL (0.0-0.8); MONO % 9.6 % (0.0-10.0); WHITE BLOOD COUNT 13.6 K/uL (4.8-10.8)
[2017-04-19 06:49] LABS: ALKALINE PHOSPHATASE 60 U/L (38-126); ALT/SGPT 46 U/L (9-52); AST/SGOT 76 U/L (14-36); BILIRUBIN,TOTAL 0.3 mg/dL (0.2-1.3); BLOOD UREA NITROGEN 12 mg/dL (7-17); CALCIUM 8.4 mg/dl (8.6-10.4); CARBON DIOXIDE 24 mmol/L (22-30); CHLORIDE 102 mmol/L (98-107); GFR AFRICAN-AMERICAN > 60; GLUCOSE,RANDOM 158 mg/dL (65-105); PHOSPHOROUS 3.1 mg/dL (2.5-4.5); POTASSIUM 4.2 mmol/L (3.6-5.2); SODIUM 135 mmol/L (132-148)
[2017-04-19 06:55] LABS: ALB/GLOB RATIO 1.1 (1.0-2.1)
--- NOTE | 2017-04-19 18:05 | CP.PCM.PN ---
Subjective - Date & Time of Evaluation Date of Evaluation: 04/19/17 Time of Evaluation: 17:45 - Subjective Subjective: Hospitalist Progress Note (Patient was seen and examined at 5:45 PM 04/19/17) 52 year old female who was admitted on 04/18/17 as a CODE HEART due to evidence of STEMI on EKG. Currently upon FULL ROS: NO chest pain NO palpitations NO SOB/Cough/Wheezing NO paresthesias NO diaphoresis NO extremity/jaw pain NO lightheadedness/dizziness Has NOT moved bowels in 4 days Exam: General: AAOx3, NAD HEENT: NCA, EOMI, PERRLA, NO cervical lymphadenopathy, NO thyromegaly, NO pharngeal erythema/exudate Cardio: NS1 and NS2, NO M/R/G Resp: CTA B/L, NO R/R/W GI: BSx4, Soft, NT, ND, NO HSM, NO guarding/rebound tenderness Ext: Capillary Refill is 2 seconds, NO edema, Pulses are strong and equal Neuro: CN II through XII Assessment and Plan: 1). ACS in patient with recent [place] with Stent x 2 placement in RCA (04/13/17) S/P insertion of Stent #3 in distal RCA ASA 81 mg PO 1x/day Brilinta 91 mg PO 2x/day Crestor 10 mg PO 1x/day HOLDING DIGNA I and Beta Darren considering the low blood pressure I spoke with Watch Adjuster Dr. Harris and he informs me that maintenance representative from [employer] is coming on 04/20/17 to provide patient with 1 month free samples of Brilinta and to help her arrange for 1 year free supply. Workup by Corporate Law Assistant Dr. Percy Griffith for hypercoagulable state: F/U Antiphospholipid Ab, Factor V Leiden, and Prothrombin Gene 2). HTN Please see Assessment and Plan #1 3). DM 2 HOLDING oral meds considering the recent ACS RISS 4). Leukocytosis NO fever WBC is trending down and there is no shift Monitor 5). HLD Crestor as above Zev Caldera D.O. Objective - Vital Signs/Intake and Output Vital Signs (last 24 hours): Temp Pulse Resp BP Pulse Ox 97.8 F 75 20 99/63 L 100 04/19/17 12:00 04/19/17 13:00 04/19/17 13:00 04/19/17 12:31 04/19/17 13:00 Intake and Output: 04/19/17 04/19/17 06:59 18:59 Intake Total 479.7 440 Output Total 1000 400 Balance -520.3 40 - Medications Medications: Current Medications Aspirin (Ecotrin) 81 mg PO DAILY [facility] Last Admin: 04/19/17 09:45 Dose: 81 mg Famotidine (Pepcid) 20 mg PO DAILY [facility] Last Admin: 04/19/17 09:45 Dose: 20 mg Insulin Human Regular (Novolin R) 0 unit SC [facility] PRN Reason: Protocol Pneumococcal Polyvalent Vaccine (Pneumovax 23 Vaccine) 0.5 ml IM .ONCE ONE Stop: 04/21/17 10:01 Rosuvastatin Calcium (Crestor) 10 mg PO HS [facility] Last Admin: 04/18/17 21:31 Dose: 10 mg Ticagrelor (Brilinta) 90 mg PO BID [facility] Last Admin: 04/19/17 09:46 Dose: 90 mg - Labs Labs: 04/19/17 06:10 04/19/17 06:10 PT 11.2 SECONDS (9.7-12.2) 04/18/17 07:40 INR 1.0 04/18/17 07:40 APTT 27 SECONDS (21-34) 04/18/17 07:40
--- NOTE | 2017-04-19 18:34 | CP.PCM.PN ---
Subjective - Date & Time of Evaluation Date of Evaluation: 04/19/17 Time of Evaluation: 18:31 - Subjective Subjective: PCI sunday04/13/17 for inferior STEMI repeat PCI hours later for acute stent thrombosis Re-presented with ST inferior elevation 04/18/17: occluded RCA stent again Rx with PCI to RCA (POBA and additional stent) No CP or SOB currently BP low-normal range No arrythmia Objective - Vital Signs/Intake and Output Vital Signs (last 24 hours): Temp Pulse Resp BP Pulse Ox 97.4 F L 75 15 99/49 L 97 04/19/17 16:00 04/19/17 18:00 04/19/17 18:00 04/19/17 17:31 04/19/17 18:00 Intake and Output: 04/19/17 04/19/17 06:59 18:59 Intake Total 479.7 440 Output Total 1000 400 Balance -520.3 40 - Medications Medications: Current Medications Aspirin (Ecotrin) 81 mg PO DAILY [facility] Last Admin: 04/19/17 09:45 Dose: 81 mg Docusate Sodium (Colace) 100 mg PO BID [facility] Famotidine (Pepcid) 20 mg PO DAILY [facility] Last Admin: 04/19/17 09:45 Dose: 20 mg Insulin Human Regular (Novolin R) 0 unit SC ACHS [facility] PRN Reason: Protocol Pneumococcal Polyvalent Vaccine (Pneumovax 23 Vaccine) 0.5 ml IM .ONCE ONE Stop: 04/21/17 10:01 Rosuvastatin Calcium (Crestor) 10 mg PO HS [facility] Last Admin: 04/18/17 21:31 Dose: 10 mg Ticagrelor (Brilinta) 90 mg PO BID [facility] Last Admin: 04/19/17 09:46 Dose: 90 mg - Labs Labs: 04/19/17 06:10 04/19/17 06:10 PT 11.2 SECONDS (9.7-12.2) 04/18/17 07:40 INR 1.0 04/18/17 07:40 APTT 27 SECONDS (21-34) 04/18/17 07:40 - Constitutional Appears: No Acute Distress - Head Exam Head Exam: ATRAUMATIC, NORMAL INSPECTION, NORMOCEPHALIC - Eye Exam Eye Exam: EOMI, Normal appearance, PERRL - ENT Exam ENT Exam: Mucous Membranes Moist - Neck Exam Neck Exam: Full ROM - Respiratory Exam Respiratory Exam: Clear to Ausculation Bilateral. absent: Rhonchi, Wheezes - Cardiovascular Exam Cardiovascular Exam: REGULAR RHYTHM, +S1, +S2. absent: +S4, Murmur - Extremities Exam Extremities Exam: Normal Inspection. absent: Calf Tenderness - Neurological Exam Neurological Exam: Alert, Awake, Oriented x3 - Skin Skin Exam: Normal Color, Warm Assessment and Plan - Assessment and Plan (Free Text) Assessment: PCI sunday04/13/17 for inferior STEMI repeat PCI hours later for acute stent thrombosis Re-presented with ST inferior elevation 04/18/17: occluded RCA stent again Rx with PCI to RCA (POBA and additional stent) Echo directly visualized by me: Normal LVEF, grade 1 DD, no sig valve abnormalities. > ASA 81 > Brillinta 90 BID > increase statin 20mg crestor suggsted > Given low BP: not on BB or DIGNA-I: suggest trial of metoprolol 25 ER daily > F/U REPEAT EKG to document in chart. * Patient will need social work to assist in obtaining brillinta : [facility] has a program that will make it available if she has no coverage. * cardiac diet * PT
--- NOTE | 2017-04-19 18:48 | CP.CCUPN ---
<ChrisjonesTatum [email or web address] - Last Filed: 04/19/17 18:46> CCU Subjective - Physician Review Subjective (Free Text): Patient was seen and examined at bedside in the morning in no acute distress. Patient feels much better today. She denies having chest pain, abdominal pain, nausea, vomiting, fevers, leg pain, and headaches. 04/19/17 18:46 CCU Objective - Vital Signs / Intake & Output Vital Signs (Last 4 hours): Vital Signs Temp Pulse Resp BP Pulse Ox 04/19/17 18:00 75 15 97 04/19/17 17:31 75 18 99/49 L 99 04/19/17 17:00 70 12 99 04/19/17 16:31 71 14 93/59 L 100 04/19/17 16:00 97.4 F L 74 16 109/56 L 100 04/19/17 15:31 71 16 109/56 L 99 04/19/17 15:00 82 19 99 Intake and Output (Last 8hrs): Intake & Output 04/19/17 04/19/17 04/19/17 06:59 14:59 22:59 Intake Total 383.8 440 Output Total 1000 400 Balance -616.2 40 Intake: Intake, IV Amount 43.8 Right Hand 43.8 Oral 340 440 Output: Urine 1000 400 Urine, Voided 1000 400 - Physical Exam Head: Positive for: Atraumatic, Normocephalic Extroacular Muscles: Positive for: EOMI Mouth: Positive for: Moist Mucous Membranes Neck: Positive for: Normal Range of Motion Respiratory/Chest: Positive for: Clear to Auscultation. Negative for: Wheezes, Rales, Rhonchi Cardiovascular: Positive for: Regular Rate and Rhythm, Normal S1, S2. Negative for: Murmurs Abdomen: Positive for: Normal Bowel Sounds. Negative for: Tenderness, Distention Upper Extremity: Positive for: Normal Inspection. Negative for: Edema Lower Extremity: Positive for: Normal Inspection, NORMAL PULSES. Negative for: Edema Skin: Positive for: Warm, Dry, Normal Color Psychiatric: Positive for: Alert, Oriented x 3 - Medications Active Medications: Active Medications Generic Name Dose Route Start Last Admin Trade Name Freq PRN Reason Stop Dose Admin Aspirin 81 mg 04/19/17 10:15 04/19/17 09:45 Ecotrin PO 81 mg DAILY ETHAN Administration Docusate Sodium 100 mg 04/19/17 18:15 Colace PO BID ETHAN Famotidine 20 mg 04/19/17 10:00 04/19/17 09:45 Pepcid PO 20 mg DAILY ETHAN Administration Insulin Human Regular 0 unit 04/19/17 22:00 Novolin R [facility] Protocol Pneumococcal Polyvalent Vaccine 0.5 ml 04/21/17 10:00 Pneumovax 23 Vaccine IM 04/21/17 10:01 .ONCE ONE Rosuvastatin Calcium 10 mg 04/18/17 22:00 04/18/17 21:31 Crestor PO 10 mg HS ETHAN Administration Ticagrelor 90 mg 04/19/17 10:00 04/19/17 09:46 Brilinta PO 90 mg BID ETHAN Administration - Patient Studies Lab Studies: Lab Studies 04/19/17 04/19/17 04/19/17 Range/Units 16:27 11:09 07:17 WBC (4.8-10.8) K/uL RBC (3.80-5.20) Mil/uL Hgb (11.0-16.0) g/dL Hct (34.0-47.0) % MCV (81.0-99.0) fL MCH (27.0-31.0) pg MCHC (33.0-37.0) g/dL RDW (11.5-14.5) % Plt Count (130-400) K/uL MPV (7.2-11.7) fL Neut % (Auto) (50.0-75.0) % Lymph % (Auto) (20.0-40.0) % Moody % (Auto) (0.0-10.0) % Eos % (Auto) (0.0-4.0) % Baso % (Auto) (0.0-2.0) % Neut # (1.8-7.0) K/uL Lymph # (1.0-4.3) K/uL Moody # (0.0-0.8) K/uL Eos # (0.0-0.7) K/uL Baso # (0.0-0.2) K/uL Sodium (132-148) mmol/L Potassium (3.6-5.2) mmol/L Chloride (98-107) mmol/L Carbon Dioxide (22-30) mmol/L Anion Gap (10-20) BUN (7-17) mg/dL Creatinine (0.7-1.2) MG/DL Est GFR ( Amer) Est GFR (Non-Af Amer) POC Glucose (mg/dL) 117 H 269 H 171 H (65-110) mg/dL Random Glucose (65-105) mg/dL Calcium (8.6-10.4) mg/dl Phosphorus (2.5-4.5) mg/dL Magnesium (1.6-2.3) mg/dL Total Bilirubin (0.2-1.3) mg/dL AST (14-36) U/L ALT (9-52) U/L Alkaline Phosphatase (38-126) U/L Total Protein (6.3-8.3) g/dL Albumin (3.5-5.0) g/dL Globulin (2.2-3.9) gm/dL Albumin/Globulin Ratio (1.0-2.1) 04/19/17 04/19/17 04/18/17 Range/Units 06:10 06:10 21:12 WBC 13.6 H (4.8-10.8) K/uL RBC 3.80 (3.80-5.20) Mil/uL Hgb 11.5 D (11.0-16.0) g/dL Hct 33.7 L (34.0-47.0) % MCV 88.6 (81.0-99.0) fL MCH 30.3 (27.0-31.0) pg MCHC 34.1 (33.0-37.0) g/dL RDW 14.0 (11.5-14.5) % Plt Count 324 (130-400) K/uL MPV 9.5 (7.2-11.7) fL Neut % (Auto) 75.0 (50.0-75.0) % Lymph % (Auto) 13.9 L (20.0-40.0) % Moody % (Auto) 9.6 (0.0-10.0) % Eos % (Auto) 1.4 (0.0-4.0) % Baso % (Auto) 0.1 (0.0-2.0) % Neut # 10.2 H (1.8-7.0) K/uL Lymph # 1.9 (1.0-4.3) K/uL Moody # 1.3 H (0.0-0.8) K/uL Eos # 0.2 (0.0-0.7) K/uL Baso # 0.0 (0.0-0.2) K/uL Sodium 135 (132-148) mmol/L Potassium 4.2 (3.6-5.2) mmol/L Chloride 102 (98-107) mmol/L Carbon Dioxide 24 (22-30) mmol/L Anion Gap 14 (10-20) BUN 12 (7-17) mg/dL Creatinine 0.6 L (0.7-1.2) MG/DL Est GFR ( Amer) > 60 Est GFR (Non-Af Amer) > 60 POC Glucose (mg/dL) 185 H (65-110) mg/dL Random Glucose 158 H (65-105) mg/dL Calcium 8.4 L (8.6-10.4) mg/dl Phosphorus 3.1 (2.5-4.5) mg/dL Magnesium 2.0 (1.6-2.3) mg/dL Total Bilirubin 0.3 (0.2-1.3) mg/dL AST 76 H (14-36) U/L ALT 46 (9-52) U/L Alkaline Phosphatase 60 (38-126) U/L Total Protein 6.0 L (6.3-8.3) g/dL Albumin 3.2 L (3.5-5.0) g/dL Globulin 2.8 (2.2-3.9) gm/dL Albumin/Globulin Ratio 1.1 (1.0-2.1) Laboratory Results - last 24 hr 04/18/17 04/19/17 04/19/17 21:12 06:10 06:10 WBC 13.6 H RBC 3.80 Hgb 11.5 D Hct 33.7 L MCV 88.6 MCH 30.3 MCHC 34.1 RDW 14.0 Plt Count 324 MPV 9.5 Neut % (Auto) 75.0 Lymph % (Auto) 13.9 L Moody % (Auto) 9.6 Eos % (Auto) 1.4 Baso % (Auto) 0.1 Neut # 10.2 H Lymph # 1.9 Moody # 1.3 H Eos # 0.2 Baso # 0.0 Sodium 135 Potassium 4.2 Chloride 102 Carbon Dioxide 24 Anion Gap 14 BUN 12 Creatinine 0.6 L Est GFR ( Amer) > 60 Est GFR (Non-Af Amer) > 60 POC Glucose (mg/dL) 185 H Random Glucose 158 H Calcium 8.4 L Phosphorus 3.1 Magnesium 2.0 Total Bilirubin 0.3 AST 76 H ALT 46 Alkaline Phosphatase 60 Total Protein 6.0 L Albumin 3.2 L Globulin 2.8 Albumin/Globulin Ratio 1.1 04/19/17 04/19/17 04/19/17 07:17 11:09 16:27 WBC RBC Hgb Hct MCV MCH MCHC RDW Plt Count MPV Neut % (Auto) Lymph % (Auto) Moody % (Auto) Eos % (Auto) Baso % (Auto) Neut # Lymph # Moody # Eos # Baso # Sodium Potassium Chloride Carbon Dioxide Anion Gap BUN Creatinine Est GFR ( Amer) Est GFR (Non-Af Amer) POC Glucose (mg/dL) 171 H 269 H 117 H Random Glucose Calcium Phosphorus Magnesium Total Bilirubin AST ALT Alkaline Phosphatase Total Protein Albumin Globulin Albumin/Globulin Ratio EKG/Cardiology Studies: Cardiology / EKG Studies 04/19/17 17:55 ELECTROCARDIOGRAM Stat Comment: Mode Of Transportation: PORTABLE Reason For Exam: Post OK EKG Fingerstick Blood Sugar Results: 185 Review of Systems - Constitutional Constitutional: absent: Fever - Cardiovascular Cardiovascular: absent: Chest Pain, Dyspnea, Palpitations - Respiratory Respiratory: absent: Cough, Dyspnea - Gastrointestinal Gastrointestinal: absent: Abdominal Pain, Constipation, Diarrhea, Nausea, Vomiting - Genitourinary Genitourinary: absent: Dysuria - Neurological Neurological: absent: Dizziness, Headaches Critical Care Progress Note - Nutrition Nutrition: Nutrition Category Date Time Status Heart Healthy Diet [DIET] Diets 04/18/17 Dinner Active Assessment/Plan (1) STEMI (ST elevation myocardial infarction) Assessment and plan: 52 year old female with medical history of HTN, Diabetes, s/p Code Heart and 2 RCA stents, presents to the ED with chest pain that radiates to her left arm. Patient was recently discharged from the hospital (04/13/17-04/17/17) for STEMI, s/ p code heart and s/p two RCA stents (as per hospital notes). Patient is a poor historian and reports having a past medical history of DM, HTN, and " circulation problems". Patient is consulted s/p third KAYCE stent by Dr. Harris, who performed the procedure today for an occlusion of distal edge of prior RCA stents. Patient is on aspirin, brillinta, integrilin for 12 hours, pressor support, and a statin. Continue to monitor. Neuro: alert, oriented x3 Pulm: no acute issues CV: inferior STEMI, RCA stents x3 - s/p 3rd stent (occlusion of the prior 2 stents) - Acid Conditioning Worker: Dr. Harris - ASA 81mg PO, Brillinta 90mg PO BID, Crestor 10mg PO HS - Integrilin for a total of 12 hours. - ECHO: EF 65-70%; diastolic dysfunction; trace MR, trace to mild TR - f/u repeat EKG Endo: Hx of DM - Monitor blood glucose, Accuchecks GI: no acute issues Heme: no acute issues - Monitor H/H Renal: no acute issues - Monitor renal function MSK: no acute issues ID: no acute issues Prophylaxis: - DVT: heparin drip - GI: pepcid 20mg po daily Current Visit: Yes Status: Acute <Malik Melendez - Last Filed: 04/19/17 18:56> CCU Objective - Vital Signs / Intake & Output Vital Signs (Last 4 hours): Vital Signs Temp Pulse Resp BP Pulse Ox 04/19/17 18:00 75 15 97 04/19/17 17:31 75 18 99/49 L 99 04/19/17 17:00 70 12 99 04/19/17 16:31 71 14 93/59 L 100 04/19/17 16:00 97.4 F L 74 16 109/56 L 100 04/19/17 15:31 71 16 109/56 L 99 04/19/17 15:00 82 19 99 Intake and Output (Last 8hrs): Intake & Output 04/19/17 04/19/17 04/19/17 06:59 14:59 22:59 Intake Total 383.8 440 Output Total 1000 400 Balance -616.2 40 Intake: Intake, IV Amount 43.8 Right Hand 43.8 Oral 340 440 Output: Urine 1000 400 Urine, Voided 1000 400 - Medications Active Medications: Active Medications Generic Name Dose Route Start Last Admin Trade Name Freq PRN Reason Stop Dose Admin Aspirin 81 mg 04/19/17 10:15 04/19/17 09:45 Ecotrin PO 81 mg DAILY ETHAN Administration Docusate Sodium 100 mg 04/19/17 18:15 04/19/17 18:52 Colace PO 100 mg BID ETHAN Administration Famotidine 20 mg 04/19/17 10:00 04/19/17 09:45 Pepcid PO 20 mg DAILY [facility]AN Administration Insulin Human Regular 0 unit 04/19/17 22:00 Novolin R SC [facility] Protocol Pneumococcal Polyvalent Vaccine 0.5 ml 04/21/17 10:00 Pneumovax 23 Vaccine IM 04/21/17 10:01 .ONCE ONE Rosuvastatin Calcium 10 mg 04/18/17 22:00 04/18/17 21:31 Crestor PO 10 mg HS [facility]AN Administration Ticagrelor 90 mg 04/19/17 10:00 04/19/17 18:52 Brilinta PO 90 mg BID ETHAN Administration - Patient Studies Lab Studies: Lab Studies 04/19/17 04/19/17 04/19/17 Range/Units 16:27 11:09 07:17 WBC (4.8-10.8) K/uL RBC (3.80-5.20) Mil/uL Hgb (11.0-16.0) g/dL Hct (34.0-47.0) % MCV (81.0-99.0) fL MCH (27.0-31.0) pg MCHC (33.0-37.0) g/dL RDW (11.5-14.5) % Plt Count (130-400) K/uL MPV (7.2-11.7) fL Neut % (Auto) (50.0-75.0) % Lymph % (Auto) (20.0-40.0) % Moody % (Auto) (0.0-10.0) % Eos % (Auto) (0.0-4.0) % Baso % (Auto) (0.0-2.0) % Neut # (1.8-7.0) K/uL Lymph # (1.0-4.3) K/uL Moody # (0.0-0.8) K/uL Eos # (0.0-0.7) K/uL Baso # (0.0-0.2) K/uL Sodium (132-148) mmol/L Potassium (3.6-5.2) mmol/L Chloride (98-107) mmol/L Carbon Dioxide (22-30) mmol/L Anion Gap (10-20) BUN (7-17) mg/dL Creatinine (0.7-1.2) MG/DL Est GFR ( Amer) Est GFR (Non-Af Amer) POC Glucose (mg/dL) 117 H 269 H 171 H (65-110) mg/dL Random Glucose (65-105) mg/dL Calcium (8.6-10.4) mg/dl Phosphorus (2.5-4.5) mg/dL Magnesium (1.6-2.3) mg/dL Total Bilirubin (0.2-1.3) mg/dL AST (14-36) U/L ALT (9-52) U/L Alkaline Phosphatase (38-126) U/L Total Protein (6.3-8.3) g/dL Albumin (3.5-5.0) g/dL Globulin (2.2-3.9) gm/dL Albumin/Globulin Ratio (1.0-2.1) 04/19/17 04/19/17 04/18/17 Range/Units 06:10 06:10 21:12 WBC 13.6 H (4.8-10.8) K/uL RBC 3.80 (3.80-5.20) Mil/uL Hgb 11.5 D (11.0-16.0) g/dL Hct 33.7 L (34.0-47.0) % MCV 88.6 (81.0-99.0) fL MCH 30.3 (27.0-31.0) pg MCHC 34.1 (33.0-37.0) g/dL RDW 14.0 (11.5-14.5) % Plt Count 324 (130-400) K/uL MPV 9.5 (7.2-11.7) fL Neut % (Auto) 75.0 (50.0-75.0) % Lymph % (Auto) 13.9 L (20.0-40.0) % Moody % (Auto) 9.6 (0.0-10.0) % Eos % (Auto) 1.4 (0.0-4.0) % Baso % (Auto) 0.1 (0.0-2.0) % Neut # 10.2 H (1.8-7.0) K/uL Lymph # 1.9 (1.0-4.3) K/uL Moody # 1.3 H (0.0-0.8) K/uL Eos # 0.2 (0.0-0.7) K/uL Baso # 0.0 (0.0-0.2) K/uL Sodium 135 (132-148) mmol/L Potassium 4.2 (3.6-5.2) mmol/L Chloride 102 (98-107) mmol/L Carbon Dioxide 24 (22-30) mmol/L Anion Gap 14 (10-20) BUN 12 (7-17) mg/dL Creatinine 0.6 L (0.7-1.2) MG/DL Est GFR ( Amer) > 60 Est GFR (Non-Af Amer) > 60 POC Glucose (mg/dL) 185 H (65-110) mg/dL Random Glucose 158 H (65-105) mg/dL Calcium 8.4 L (8.6-10.4) mg/dl Phosphorus 3.1 (2.5-4.5) mg/dL Magnesium 2.0 (1.6-2.3) mg/dL Total Bilirubin 0.3 (0.2-1.3) mg/dL AST 76 H (14-36) U/L ALT 46 (9-52) U/L Alkaline Phosphatase 60 (38-126) U/L Total Protein 6.0 L (6.3-8.3) g/dL Albumin 3.2 L (3.5-5.0) g/dL Globulin 2.8 (2.2-3.9) gm/dL Albumin/Globulin Ratio 1.1 (1.0-2.1) Laboratory Results - last 24 hr 04/18/17 04/19/17 04/19/17 21:12 06:10 06:10 WBC 13.6 H RBC 3.80 Hgb 11.5 D Hct 33.7 L MCV 88.6 MCH 30.3 MCHC 34.1 RDW 14.0 Plt Count 324 MPV 9.5 Neut % (Auto) 75.0 Lymph % (Auto) 13.9 L Moody % (Auto) 9.6 Eos % (Auto) 1.4 Baso % (Auto) 0.1 Neut # 10.2 H Lymph # 1.9 Moody # 1.3 H Eos # 0.2 Baso # 0.0 Sodium 135 Potassium 4.2 Chloride 102 Carbon Dioxide 24 Anion Gap 14 BUN 12 Creatinine 0.6 L Est GFR ( Amer) > 60 Est GFR (Non-Af Amer) > 60 POC Glucose (mg/dL) 185 H Random Glucose 158 H Calcium 8.4 L Phosphorus 3.1 Magnesium 2.0 Total Bilirubin 0.3 AST 76 H ALT 46 Alkaline Phosphatase 60 Total Protein 6.0 L Albumin 3.2 L Globulin 2.8 Albumin/Globulin Ratio 1.1 04/19/17 04/19/17 04/19/17 07:17 11:09 16:27 WBC RBC Hgb Hct MCV MCH MCHC RDW Plt Count MPV Neut % (Auto) Lymph % (Auto) Moody % (Auto) Eos % (Auto) Baso % (Auto) Neut # Lymph # Moody # Eos # Baso # Sodium Potassium Chloride Carbon Dioxide Anion Gap BUN Creatinine Est GFR ( Amer) Est GFR (Non-Af Amer) POC Glucose (mg/dL) 171 H 269 H 117 H Random Glucose Calcium Phosphorus Magnesium Total Bilirubin AST ALT Alkaline Phosphatase Total Protein Albumin Globulin Albumin/Globulin Ratio EKG/Cardiology Studies: Cardiology / EKG Studies 04/19/17 17:55 ELECTROCARDIOGRAM Stat Comment: Mode Of Transportation: PORTABLE Reason For Exam: Post OK EKG Critical Care Progress Note - Nutrition Nutrition: Nutrition Category Date Time Status Heart Healthy Diet [DIET] Diets 04/18/17 Dinner Active Attending/Attestation - Attestation I have personally seen and examined this patient.: Yes I have fully participated in the care of the patient.: Yes I have reviewed all pertinent clinical information: Yes Notes (Text): 04/19/17 18:56 I have seen and examined the patient. Medical records, lab studies, and imaging were reviewed by me and a management plan was formulated on multidisciplinary rounds with resident Dr. Davison. I agree with their above documented assessment and plan. Patient has no further chest pain, on ASA, integrillin and Brilinta. Possible hypercoagualable disorder. Critical Care Time 35 minutes. Multi-disciplinary rounds were performed with house staff, nursing, speech therapy, respiratory therapy, pharmacy and nutrition with integrated input from the primary team/attending and other consulting services. The documented time is cumulative and includes review of patient data/exams/labs/chart review and examination of the patient on rounds and throughout the day; time is exclusive of any procedures or teaching time.
[2017-04-19] MEDS: (Novolin R) Insulin Human Regular 100 units/ml vial SC SCH (22:00)
[2017-04-20 06:20] LABS: BASO # 0.1 K/uL (0.0-0.2); BASO % 0.9 % (0.0-2.0); EOS # 0.4 K/uL (0.0-0.7); EOS % 3.5 % (0.0-4.0); LYMPH # 2.1 K/uL (1.0-4.3); LYMPH % 18.8 % (20.0-40.0); MEAN CELL VOLUME 88.4 fL (81.0-99.0); MEAN CORPUSCULAR HEMOGLOBIN 30.7 pg (27.0-31.0); MEAN CORPUSCULAR HGB CONC 34.8 g/dL (33.0-37.0); MEAN PLATELET VOLUME 8.9 fL (7.2-11.7); MONO # 1.3 K/uL (0.0-0.8); MONO % 12.2 % (0.0-10.0); RED CELL DISTRIBUTION WIDTH 13.7 % (11.5-14.5)
[2017-04-20 06:27] LABS: ALB/GLOB RATIO 1.1 (1.0-2.1); ALKALINE PHOSPHATASE 67 U/L (38-126); ALT/SGPT 39 U/L (9-52); AST/SGOT 33 U/L (14-36); BILIRUBIN,TOTAL 0.5 mg/dL (0.2-1.3); BLOOD UREA NITROGEN 12 mg/dL (7-17); CALCIUM 8.9 mg/dl (8.6-10.4); CARBON DIOXIDE 27 mmol/L (22-30); CHLORIDE 100 mmol/L (98-107); GFR AFRICAN-AMERICAN > 60; GLUCOSE,RANDOM 155 mg/dL (65-105); MAGNESIUM 1.9 mg/dL (1.6-2.3); PHOSPHOROUS 3.6 mg/dL (2.5-4.5); POTASSIUM 4.9 mmol/L (3.6-5.2); SODIUM 136 mmol/L (132-148); TOTAL PROTEIN 6.6 g/dL (6.3-8.3)
--- NOTE | 2017-04-20 07:36 | CP.PCM.PN ---
Subjective - Date & Time of Evaluation Date of Evaluation: 04/20/17 Time of Evaluation: 07:15 - Subjective Subjective: Hospitalist Progress Note (Patient was seen and examined at 7:15 AM 04/20/17) 52 year old female who was admitted on 04/18/17 as a CODE HEART due to evidence of STEMI on EKG. Currently upon FULL ROS: NO chest pain NO palpitations NO SOB/Cough/Wheezing NO paresthesias NO diaphoresis NO extremity/jaw pain NO lightheadedness/dizziness Has NOT moved bowels in about 4 days Exam: General: AAOx3, NAD HEENT: NCA, EOMI, PERRLA, NO cervical lymphadenopathy, NO thyromegaly, NO pharngeal erythema/exudate Cardio: NS1 and NS2, NO M/R/G Resp: CTA B/L, NO R/R/W GI: BSx4, Soft, NT, ND, NO HSM, NO guarding/rebound tenderness Ext: Capillary Refill is 2 seconds, NO edema, Pulses are strong and equal Neuro: CN II through XII Assessment and Plan: 1). ACS in patient with recent IN with Stent x 2 placement in RCA (04/13/17) S/P insertion of Stent #3 in distal RCA ASA 81 mg PO 1x/day Brilinta 91 mg PO 2x/day Crestor 20 mg PO 1x/day HOLDING DIGNA I and Beta Darren considering the low blood pressure I spoke with [employer] Dr. Harris on 04/19/17 and he informed me that textile machinery sales representative from [employer] is coming on 04/20/17 to provide patient with 1 month free samples of Brilinta and to help her arrange for 1 year free supply. Workup by Loadmaster Dr. Percy Griffith for hypercoagulable state: F/U Antiphospholipid Ab, Factor V Leiden, and Prothrombin Gene 2). HTN Please see Assessment and Plan #1 3). DM 2 HOLDING oral meds considering the recent ACS RISS 4). Leukocytosis NO fever WBC is trending down and there is no shift Monitor 5). HLD Crestor as above 6). Constipation Patient is already on Colace 100 mg PO BID and 1 dose of Dulcolax 5 mg PO has been ordered for today. Likely plan for discharge on 04/21/17. Zev J. Caldera, D.O. Objective - Vital Signs/Intake and Output Vital Signs (last 24 hours): Temp Pulse Resp BP Pulse Ox 97.4 F L 69 12 109/58 L 97 04/20/17 04:00 04/20/17 06:31 04/20/17 06:31 04/20/17 06:31 04/20/17 06:31 Intake and Output: 04/20/17 04/20/17 06:59 18:59 Intake Total 150 Output Total 300 Balance -150 - Medications Medications: Current Medications Aspirin (Ecotrin) 81 mg PO DAILY [facility] Last Admin: 04/19/17 09:45 Dose: 81 mg Docusate Sodium (Colace) 100 mg PO BID [facility] Last Admin: 04/19/17 18:52 Dose: 100 mg Famotidine (Pepcid) 20 mg PO DAILY [facility] Last Admin: 04/19/17 09:45 Dose: 20 mg Insulin Human Regular (Novolin R) 0 unit SC ACHS [facility] PRN Reason: Protocol Last Admin: 04/19/17 22:00 Dose: Not Given Pneumococcal Polyvalent Vaccine (Pneumovax 23 Vaccine) 0.5 ml IM .ONCE ONE Stop: 04/21/17 10:01 Rosuvastatin Calcium (Crestor) 10 mg PO HS [facility] Last Admin: 04/19/17 21:59 Dose: 10 mg Ticagrelor (Brilinta) 90 mg PO BID [facility] Last Admin: 04/19/17 18:52 Dose: 90 mg - Labs Labs: 04/20/17 06:13 04/20/17 06:13 PT 11.2 SECONDS (9.7-12.2) 04/18/17 07:40 INR 1.0 04/18/17 07:40 APTT 27 SECONDS (21-34) 04/18/17 07:40
[2017-04-20] MEDS ORDERED: Bisacodyl 5mg EC Tab PO ONE (07:39)
[2017-04-20] MEDS: (Novolin R) Insulin Human Regular 100 units/ml vial SC SCH ×5 (08:00→22:00)
--- NOTE | 2017-04-20 10:42 | CP.PCM.PN ---
Subjective - Date & Time of Evaluation Date of Evaluation: 04/20/17 Time of Evaluation: 10:38 - Subjective Subjective: No Chest pain No SOB No arrythmia BP and HR normal Objective - Vital Signs/Intake and Output Vital Signs (last 24 hours): Temp Pulse Resp BP Pulse Ox 97.4 F L 69 12 109/58 L 97 04/20/17 04:00 04/20/17 06:31 04/20/17 06:31 04/20/17 06:31 04/20/17 06:31 Intake and Output: 04/20/17 04/20/17 06:59 18:59 Intake Total 150 Output Total 300 Balance -150 - Medications Medications: Current Medications Aspirin (Ecotrin) 81 mg PO DAILY [facility] Last Admin: 04/19/17 09:45 Dose: 81 mg Docusate Sodium (Colace) 100 mg PO BID [facility] Last Admin: 04/19/17 18:52 Dose: 100 mg Famotidine (Pepcid) 20 mg PO DAILY [facility] Last Admin: 04/19/17 09:45 Dose: 20 mg Insulin Human Regular (Novolin R) 0 unit SC [facility] PRN Reason: Protocol Last Admin: 04/19/17 22:00 Dose: Not Given Pneumococcal Polyvalent Vaccine (Pneumovax 23 Vaccine) 0.5 ml IM .ONCE ONE Stop: 04/21/17 10:01 Rosuvastatin Calcium (Crestor) 20 mg PO [facility] Ticagrelor (Brilinta) 90 mg PO BID [facility] Last Admin: 04/19/17 18:52 Dose: 90 mg - Labs Labs: 04/20/17 06:13 04/20/17 06:13 PT 11.2 SECONDS (9.7-12.2) 04/18/17 07:40 INR 1.0 04/18/17 07:40 APTT 27 SECONDS (21-34) 04/18/17 07:40 - Constitutional Appears: No Acute Distress - Head Exam Head Exam: ATRAUMATIC, NORMAL INSPECTION, NORMOCEPHALIC - Eye Exam Eye Exam: EOMI, Normal appearance, PERRL - ENT Exam ENT Exam: Mucous Membranes Moist, Normal Oropharynx - Neck Exam Neck Exam: Full ROM. absent: Tenderness, Thyromegaly - Respiratory Exam Respiratory Exam: Clear to Ausculation Bilateral, NORMAL BREATHING PATTERN. absent: Rhonchi, Wheezes - Cardiovascular Exam Cardiovascular Exam: REGULAR RHYTHM, +S1, +S2. absent: +S4 - Extremities Exam Extremities Exam: Normal Inspection. absent: Calf Tenderness - Neurological Exam Neurological Exam: Alert, Awake, Oriented x3 - Psychiatric Exam Psychiatric exam: Normal Affect, Normal Mood - Skin Skin Exam: Normal Color, Warm Assessment and Plan - Assessment and Plan (Free Text) Assessment: PCI sunday04/13/17 for inferior STEMI repeat PCI hours later for acute stent thrombosis Re-presented with ST inferior elevation 04/18/17: occluded RCA stent again Rx with PCI to RCA (POBA and additional stent) Echo directly visualized by me: Normal LVEF, grade 1 DD, no sig valve abnormalities. > ASA 81 > Brillinta 90 BID > increase statin 20mg crestor suggsted > Given low BP: not on BB or DIGNA-I: suggest trial of metoprolol 25 ER daily > F/U REPEAT EKG to document in chart. > H/H and chem is normal * Patient has been clearly told importance of DAPT use and she understands. * She has been given 1 month supply of brillinta in hand and a script for another 1 month supply to be filled today for her by pharmacy. *She must continue DAPT and if brillinta is absolutely unaffordable: Plavix can be taken but must be loaded 600mg during the overlap period. * cardiac diet * PT
--- NOTE | 2017-04-20 14:50 | CP.CCUPN ---
<[email or web address] [email or web address] - Last Filed: 04/20/17 14:40> CCU Subjective - Physician Review Subjective (Free Text): Patient was seen and examined at bedside in the morning in no acute distress. Patient feels much better today and has no complaints. She denies having chest pain, abdominal pain, nausea, vomiting, fevers, leg pain, and headaches. Patient is stable for transfer to the floor. 04/20/17 14:41 CCU Objective - Vital Signs / Intake & Output Vital Signs (Last 4 hours): Vital Signs Pulse Resp BP Pulse Ox 04/20/17 12:31 77 13 107/80 100 04/20/17 12:00 71 15 98 04/20/17 11:31 71 14 102/73 98 04/20/17 11:00 75 15 98 Intake and Output (Last 8hrs): Intake & Output 04/19/17 04/20/17 04/20/17 22:59 06:59 14:59 Intake Total 150 Output Total 300 Balance -150 Intake: Oral 150 Output: Urine 300 Urine, Voided 300 Other: # Bowel Movements 1 - Physical Exam Head: Positive for: Atraumatic, Normocephalic Extroacular Muscles: Positive for: EOMI Mouth: Positive for: Moist Mucous Membranes Neck: Positive for: Normal Range of Motion Respiratory/Chest: Positive for: Clear to Auscultation. Negative for: Wheezes, Rales, Rhonchi Cardiovascular: Positive for: Regular Rate and Rhythm, Normal S1, S2. Negative for: Murmurs Abdomen: Positive for: Normal Bowel Sounds. Negative for: Tenderness, Distention Upper Extremity: Positive for: Normal Inspection. Negative for: Edema Lower Extremity: Positive for: Normal Inspection, NORMAL PULSES. Negative for: Edema Skin: Positive for: Warm, Dry, Normal Color Psychiatric: Positive for: Alert, Oriented x 3 - Medications Active Medications: Active Medications Generic Name Dose Route Start Last Admin Trade Name Freq PRN Reason Stop Dose Admin Aspirin 81 mg 04/19/17 10:15 04/20/17 10:57 Ecotrin PO 81 mg DAILY ETHAN Administration Docusate Sodium 100 mg 04/19/17 18:15 04/20/17 10:57 Colace PO 100 mg BID ETHAN Administration Famotidine 20 mg 04/19/17 10:00 04/20/17 10:57 Pepcid PO 20 mg DAILY ETHAN Administration Insulin Human Regular 0 unit 04/19/17 22:00 04/20/17 08:00 Novolin R SC Not Given ACHS [facility] Protocol Pneumococcal Polyvalent Vaccine 0.5 ml 04/21/17 10:00 Pneumovax 23 Vaccine IM 04/21/17 10:01 .ONCE ONE Rosuvastatin Calcium 20 mg 04/20/17 07:37 Crestor PO HS ETHAN Ticagrelor 90 mg 04/19/17 10:00 04/19/17 18:52 Brilinta PO 90 mg BID ETHAN Administration - Patient Studies Lab Studies: Microbiology Studies 04/18/17 14:00 MRSA Culture (Admit) - Final Nose MRSA NOT DETECTED Lab Studies 04/20/17 04/20/17 04/20/17 Range/Units 11:20 07:27 06:13 WBC (4.8-10.8) K/uL RBC (3.80-5.20) Mil/uL Hgb (11.0-16.0) g/dL Hct (34.0-47.0) % MCV (81.0-99.0) fL MCH (27.0-31.0) pg MCHC (33.0-37.0) g/dL RDW (11.5-14.5) % Plt Count (130-400) K/uL MPV (7.2-11.7) fL Neut % (Auto) (50.0-75.0) % Lymph % (Auto) (20.0-40.0) % Kleberg % (Auto) (0.0-10.0) % Eos % (Auto) (0.0-4.0) % Baso % (Auto) (0.0-2.0) % Neut # (1.8-7.0) K/uL Lymph # (1.0-4.3) K/uL Kleberg # (0.0-0.8) K/uL Eos # (0.0-0.7) K/uL Baso # (0.0-0.2) K/uL Sodium 136 (132-148) mmol/L Potassium 4.9 (3.6-5.2) mmol/L Chloride 100 (98-107) mmol/L Carbon Dioxide 27 (22-30) mmol/L Anion Gap 15 (10-20) BUN 12 (7-17) mg/dL Creatinine 0.7 (0.7-1.2) MG/DL Est GFR ( Amer) > 60 Est GFR (Non-Af Amer) > 60 POC Glucose (mg/dL) 186 H 154 H (65-110) mg/dL Random Glucose 155 H (65-105) mg/dL Calcium 8.9 (8.6-10.4) mg/dl Phosphorus 3.6 (2.5-4.5) mg/dL Magnesium 1.9 (1.6-2.3) mg/dL Total Bilirubin 0.5 (0.2-1.3) mg/dL AST 33 (14-36) U/L ALT 39 (9-52) U/L Alkaline Phosphatase 67 (38-126) U/L Total Protein 6.6 (6.3-8.3) g/dL Albumin 3.4 L (3.5-5.0) g/dL Globulin 3.2 (2.2-3.9) gm/dL Albumin/Globulin Ratio 1.1 (1.0-2.1) 04/20/17 04/19/17 04/19/17 Range/Units 06:13 21:10 16:27 WBC 11.0 H (4.8-10.8) K/uL RBC 4.07 (3.80-5.20) Mil/uL Hgb 12.5 (11.0-16.0) g/dL Hct 36.0 (34.0-47.0) % MCV 88.4 (81.0-99.0) fL MCH 30.7 (27.0-31.0) pg MCHC 34.8 (33.0-37.0) g/dL RDW 13.7 (11.5-14.5) % Plt Count 356 (130-400) K/uL MPV 8.9 (7.2-11.7) fL Neut % (Auto) 64.6 (50.0-75.0) % Lymph % (Auto) 18.8 L (20.0-40.0) % Kleberg % (Auto) 12.2 H (0.0-10.0) % Eos % (Auto) 3.5 (0.0-4.0) % Baso % (Auto) 0.9 (0.0-2.0) % Neut # 7.1 H (1.8-7.0) K/uL Lymph # 2.1 (1.0-4.3) K/uL Kleberg # 1.3 H (0.0-0.8) K/uL Eos # 0.4 (0.0-0.7) K/uL Baso # 0.1 (0.0-0.2) K/uL Sodium (132-148) mmol/L Potassium (3.6-5.2) mmol/L Chloride (98-107) mmol/L Carbon Dioxide (22-30) mmol/L Anion Gap (10-20) BUN (7-17) mg/dL Creatinine (0.7-1.2) MG/DL Est GFR ( Amer) Est GFR (Non-Af Amer) POC Glucose (mg/dL) 170 H 117 H (65-110) mg/dL Random Glucose (65-105) mg/dL Calcium (8.6-10.4) mg/dl Phosphorus (2.5-4.5) mg/dL Magnesium (1.6-2.3) mg/dL Total Bilirubin (0.2-1.3) mg/dL AST (14-36) U/L ALT (9-52) U/L Alkaline Phosphatase (38-126) U/L Total Protein (6.3-8.3) g/dL Albumin (3.5-5.0) g/dL Globulin (2.2-3.9) gm/dL Albumin/Globulin Ratio (1.0-2.1) Laboratory Results - last 24 hr 04/19/17 04/19/17 04/20/17 16:27 21:10 06:13 WBC 11.0 H RBC 4.07 Hgb 12.5 Hct 36.0 MCV 88.4 MCH 30.7 MCHC 34.8 RDW 13.7 Plt Count 356 MPV 8.9 Neut % (Auto) 64.6 Lymph % (Auto) 18.8 L Kleberg % (Auto) 12.2 H Eos % (Auto) 3.5 Baso % (Auto) 0.9 Neut # 7.1 H Lymph # 2.1 Kleberg # 1.3 H Eos # 0.4 Baso # 0.1 Sodium Potassium Chloride Carbon Dioxide Anion Gap BUN Creatinine Est GFR ( Amer) Est GFR (Non-Af Amer) POC Glucose (mg/dL) 117 H 170 H Random Glucose Calcium Phosphorus Magnesium Total Bilirubin AST ALT Alkaline Phosphatase Total Protein Albumin Globulin Albumin/Globulin Ratio 04/20/17 04/20/17 04/20/17 06:13 07:27 11:20 WBC RBC Hgb Hct MCV MCH MCHC RDW Plt Count MPV Neut % (Auto) Lymph % (Auto) Kleberg % (Auto) Eos % (Auto) Baso % (Auto) Neut # Lymph # Kleberg # Eos # Baso # Sodium 136 Potassium 4.9 Chloride 100 Carbon Dioxide 27 Anion Gap 15 BUN 12 Creatinine 0.7 Est GFR ( Amer) > 60 Est GFR (Non-Af Amer) > 60 POC Glucose (mg/dL) 154 H 186 H Random Glucose 155 H Calcium 8.9 Phosphorus 3.6 Magnesium 1.9 Total Bilirubin 0.5 AST 33 ALT 39 Alkaline Phosphatase 67 Total Protein 6.6 Albumin 3.4 L Globulin 3.2 Albumin/Globulin Ratio 1.1 EKG/Cardiology Studies: Cardiology / EKG Studies 04/19/17 17:55 ELECTROCARDIOGRAM Stat Comment: Mode Of Transportation: PORTABLE Reason For Exam: Post MS EKG Fingerstick Blood Sugar Results: 170 Review of Systems - Constitutional Constitutional: absent: Fever - Cardiovascular Cardiovascular: absent: Chest Pain, Dyspnea - Respiratory Respiratory: absent: Dyspnea - Gastrointestinal Gastrointestinal: absent: Abdominal Pain, Constipation, Diarrhea, Nausea, Vomiting - Genitourinary Genitourinary: absent: Dysuria - Neurological Neurological: absent: Dizziness, Headaches Critical Care Progress Note - Nutrition Nutrition: Nutrition Category Date Time Status Heart Healthy Diet [DIET] Diets 04/18/17 Dinner Active Assessment/Plan (1) STEMI (ST elevation myocardial infarction) Assessment and plan: 52 year old female with medical history of HTN, Diabetes, s/p Code Heart and 2 RCA stents, presents to the ED with chest pain that radiates to her left arm. Patient was recently discharged from the hospital (04/13/17-04/17/17) for STEMI, s/ p code heart and s/p two RCA stents (as per hospital notes). Patient is a poor historian and reports having a past medical history of DM, HTN, and " circulation problems". Patient is consulted s/p third KAYCE stent by Dr. Harris, who performed the procedure today for an occlusion of distal edge of prior RCA stents. Patient is on aspirin, brillinta, integrilin for 12 hours, pressor support, and a statin. Patient is stable to transfer to the floor. Patient was advised to continue dual antiplatelet therapy- without antiplatelet therapy, patient's stents will re-occlude; patient must remain on Brillinta continuously. Patient was given a 30day supply of Brillinta by the sales representative [employer]. If patient cannot afford Brillinta, can consider taking Plavix, starting with a 600mg loading dose, followed by 75mg daily continuously. Neuro: alert, oriented x3 Pulm: no acute issues CV: inferior STEMI, RCA stents x3 - s/p 3rd stent (occlusion of the prior 2 stents) - Transport Rn: Dr. Harris - ASA 81mg PO, Brillinta 90mg PO BID, Crestor 20mg PO HS - Integrilin for a total of 12 hours. discontinued on 04/18/17 - ECHO: EF 65-70%; diastolic dysfunction; trace MR, trace to mild TR - f/u repeat EKG Endo: Hx of DM - Monitor blood glucose, Accuchecks GI: no acute issues Heme: no acute issues - Monitor H/H Renal: no acute issues - Monitor renal function MSK: no acute issues ID: no acute issues Prophylaxis: - DVT: heparin drip- discontinued - GI: pepcid 20mg po daily Current Visit: Yes Status: Acute <Cristi Mcdonald - Last Filed: 04/20/17 17:50> CCU Objective - Vital Signs / Intake & Output Vital Signs (Last 4 hours): Vital Signs Temp Pulse Resp BP Pulse Ox 04/20/17 16:00 98.4 F 73 15 107/58 L 99 04/20/17 15:32 82 12 92/71 L 99 04/20/17 15:00 70 14 98 04/20/17 14:31 76 20 111/58 L 99 04/20/17 14:00 71 100 Intake and Output (Last 8hrs): Intake & Output 04/20/17 04/20/17 04/20/17 06:59 14:59 22:59 Intake Total 300 Output Total 400 Balance -100 Intake: Oral 300 Output: Urine 400 Urine, Voided 400 Other: # Bowel Movements 1 - Medications Active Medications: Active Medications Generic Name Dose Route Start Last Admin Trade Name Mikal PRN Reason Stop Dose Admin Aspirin 81 mg 04/19/17 10:15 04/20/17 10:57 Ecotrin PO 81 mg DAILY [facility] Administration Docusate Sodium 100 mg 04/19/17 18:15 04/20/17 10:57 Colace PO 100 mg BID ETHAN Administration Famotidine 20 mg 04/19/17 10:00 04/20/17 10:57 Pepcid PO 20 mg DAILY ETHAN Administration Insulin Human Regular 0 unit 04/19/17 22:00 04/20/17 08:00 Novolin R SC Not Given ACHS [facility] Protocol Pneumococcal Polyvalent Vaccine 0.5 ml 04/21/17 10:00 Pneumovax 23 Vaccine IM 04/21/17 10:01 .ONCE ONE Rosuvastatin Calcium 20 mg 04/20/17 07:37 Crestor PO HS ETHAN Ticagrelor 90 mg 04/19/17 10:00 04/19/17 18:52 Brilinta PO 90 mg BID ETHAN Administration - Patient Studies Lab Studies: Microbiology Studies 04/18/17 14:00 MRSA Culture (Admit) - Final Nose MRSA NOT DETECTED Lab Studies 04/20/17 04/20/17 04/20/17 Range/Units 17:02 11:20 07:27 WBC (4.8-10.8) K/uL RBC (3.80-5.20) Mil/uL Hgb (11.0-16.0) g/dL Hct (34.0-47.0) % MCV (81.0-99.0) fL MCH (27.0-31.0) pg MCHC (33.0-37.0) g/dL RDW (11.5-14.5) % Plt Count (130-400) K/uL MPV (7.2-11.7) fL Neut % (Auto) (50.0-75.0) % Lymph % (Auto) (20.0-40.0) % Kleberg % (Auto) (0.0-10.0) % Eos % (Auto) (0.0-4.0) % Baso % (Auto) (0.0-2.0) % Neut # (1.8-7.0) K/uL Lymph # (1.0-4.3) K/uL Kleberg # (0.0-0.8) K/uL Eos # (0.0-0.7) K/uL Baso # (0.0-0.2) K/uL Sodium (132-148) mmol/L Potassium (3.6-5.2) mmol/L Chloride (98-107) mmol/L Carbon Dioxide (22-30) mmol/L Anion Gap (10-20) BUN (7-17) mg/dL Creatinine (0.7-1.2) MG/DL Est GFR ( Amer) Est GFR (Non-Af Amer) POC Glucose (mg/dL) 211 H 186 H 154 H (65-110) mg/dL Random Glucose (65-105) mg/dL Calcium (8.6-10.4) mg/dl Phosphorus (2.5-4.5) mg/dL Magnesium (1.6-2.3) mg/dL Total Bilirubin (0.2-1.3) mg/dL AST (14-36) U/L ALT (9-52) U/L Alkaline Phosphatase (38-126) U/L Total Protein (6.3-8.3) g/dL Albumin (3.5-5.0) g/dL Globulin (2.2-3.9) gm/dL Albumin/Globulin Ratio (1.0-2.1) 04/20/17 04/20/17 04/19/17 Range/Units 06:13 06:13 21:10 WBC 11.0 H (4.8-10.8) K/uL RBC 4.07 (3.80-5.20) Mil/uL Hgb 12.5 (11.0-16.0) g/dL Hct 36.0 (34.0-47.0) % MCV 88.4 (81.0-99.0) fL MCH 30.7 (27.0-31.0) pg MCHC 34.8 (33.0-37.0) g/dL RDW 13.7 (11.5-14.5) % Plt Count 356 (130-400) K/uL MPV 8.9 (7.2-11.7) fL Neut % (Auto) 64.6 (50.0-75.0) % Lymph % (Auto) 18.8 L (20.0-40.0) % Kleberg % (Auto) 12.2 H (0.0-10.0) % Eos % (Auto) 3.5 (0.0-4.0) % Baso % (Auto) 0.9 (0.0-2.0) % Neut # 7.1 H (1.8-7.0) K/uL Lymph # 2.1 (1.0-4.3) K/uL Kleberg # 1.3 H (0.0-0.8) K/uL Eos # 0.4 (0.0-0.7) K/uL Baso # 0.1 (0.0-0.2) K/uL Sodium 136 (132-148) mmol/L Potassium 4.9 (3.6-5.2) mmol/L Chloride 100 (98-107) mmol/L Carbon Dioxide 27 (22-30) mmol/L Anion Gap 15 (10-20) BUN 12 (7-17) mg/dL Creatinine 0.7 (0.7-1.2) MG/DL Est GFR ( Amer) > 60 Est GFR (Non-Af Amer) > 60 POC Glucose (mg/dL) 170 H (65-110) mg/dL Random Glucose 155 H (65-105) mg/dL Calcium 8.9 (8.6-10.4) mg/dl Phosphorus 3.6 (2.5-4.5) mg/dL Magnesium 1.9 (1.6-2.3) mg/dL Total Bilirubin 0.5 (0.2-1.3) mg/dL AST 33 (14-36) U/L ALT 39 (9-52) U/L Alkaline Phosphatase 67 (38-126) U/L Total Protein 6.6 (6.3-8.3) g/dL Albumin 3.4 L (3.5-5.0) g/dL Globulin 3.2 (2.2-3.9) gm/dL Albumin/Globulin Ratio 1.1 (1.0-2.1) Laboratory Results - last 24 hr 04/19/17 04/20/17 04/20/17 21:10 06:13 06:13 WBC 11.0 H RBC 4.07 Hgb 12.5 Hct 36.0 MCV 88.4 MCH 30.7 MCHC 34.8 RDW 13.7 Plt Count 356 MPV 8.9 Neut % (Auto) 64.6 Lymph % (Auto) 18.8 L Kleberg % (Auto) 12.2 H Eos % (Auto) 3.5 Baso % (Auto) 0.9 Neut # 7.1 H Lymph # 2.1 Kleberg # 1.3 H Eos # 0.4 Baso # 0.1 Sodium 136 Potassium 4.9 Chloride 100 Carbon Dioxide 27 Anion Gap 15 BUN 12 Creatinine 0.7 Est GFR ( Amer) > 60 Est GFR (Non-Af Amer) > 60 POC Glucose (mg/dL) 170 H Random Glucose 155 H Calcium 8.9 Phosphorus 3.6 Magnesium 1.9 Total Bilirubin 0.5 AST 33 ALT 39 Alkaline Phosphatase 67 Total Protein 6.6 Albumin 3.4 L Globulin 3.2 Albumin/Globulin Ratio 1.1 04/20/17 04/20/17 04/20/17 07:27 11:20 17:02 WBC RBC Hgb Hct MCV MCH MCHC RDW Plt Count MPV Neut % (Auto) Lymph % (Auto) Kleberg % (Auto) Eos % (Auto) Baso % (Auto) Neut # Lymph # Kleberg # Eos # Baso # Sodium Potassium Chloride Carbon Dioxide Anion Gap BUN Creatinine Est GFR ( Amer) Est GFR (Non-Af Amer) POC Glucose (mg/dL) 154 H 186 H 211 H Random Glucose Calcium Phosphorus Magnesium Total Bilirubin AST ALT Alkaline Phosphatase Total Protein Albumin Globulin Albumin/Globulin Ratio EKG/Cardiology Studies: Cardiology / EKG Studies 04/19/17 17:55 ELECTROCARDIOGRAM Stat Comment: Mode Of Transportation: PORTABLE Reason For Exam: Post MS EKG Critical Care Progress Note - Nutrition Nutrition: Nutrition Category Date Time Status Heart Healthy Diet [DIET] Diets 04/18/17 Dinner Active Attending/Attestation - Attestation I have personally seen and examined this patient.: Yes I have fully participated in the care of the patient.: Yes I have reviewed all pertinent clinical information: Yes Notes (Text): 04/20/17 17:50 Patient seen and examined in the intensive care unit. Case discussed with house staff in the morning counts. Stable for transfer to telemetry
--- NOTE | 2017-04-20 15:15 | CP.PCM.PN ---
Subjective - Date & Time of Evaluation Date of Evaluation: 04/20/17 Time of Evaluation: 10:00 - Subjective Subjective: PGY3 on heme/onc Dr. Griffith service: Pt seen and examined at bedside this morning. No complaints at the moment. Objective - Vital Signs/Intake and Output Vital Signs (last 24 hours): Temp Pulse Resp BP Pulse Ox 97.4 F L 77 13 107/80 100 04/20/17 04:00 04/20/17 12:31 04/20/17 12:31 04/20/17 12:31 04/20/17 12:31 Intake and Output: 04/20/17 04/20/17 06:59 18:59 Intake Total 150 Output Total 300 Balance -150 - Medications Medications: Current Medications Aspirin (Ecotrin) 81 mg PO DAILY [facility] Last Admin: 04/20/17 10:57 Dose: 81 mg Docusate Sodium (Colace) 100 mg PO BID [facility] Last Admin: 04/20/17 10:57 Dose: 100 mg Famotidine (Pepcid) 20 mg PO DAILY [facility] Last Admin: 04/20/17 10:57 Dose: 20 mg Insulin Human Regular (Novolin R) 0 unit SC [facility] PRN Reason: Protocol Last Admin: 04/20/17 08:00 Dose: Not Given Pneumococcal Polyvalent Vaccine (Pneumovax 23 Vaccine) 0.5 ml IM .ONCE ONE Stop: 04/21/17 10:01 Rosuvastatin Calcium (Crestor) 20 mg PO [facility] Ticagrelor (Brilinta) 90 mg PO BID [facility] Last Admin: 04/19/17 18:52 Dose: 90 mg - Labs Labs: 04/20/17 06:13 04/20/17 06:13 PT 11.2 SECONDS (9.7-12.2) 04/18/17 07:40 INR 1.0 04/18/17 07:40 APTT 27 SECONDS (21-34) 04/18/17 07:40 - Constitutional Appears: Non-toxic, No Acute Distress, Chronically Ill - Head Exam Head Exam: NORMOCEPHALIC - Respiratory Exam Respiratory Exam: NORMAL BREATHING PATTERN - Cardiovascular Exam Cardiovascular Exam: REGULAR RHYTHM, +S1, +S2. absent: Gallop, Rubs - GI/Abdominal Exam GI & Abdominal Exam: Normal Bowel Sounds - Neurological Exam Neurological Exam: Alert, Awake, Oriented x3 - Psychiatric Exam Psychiatric exam: Normal Mood - Skin Skin Exam: Intact Assessment and Plan - Assessment and Plan (Free Text) Assessment: (1) Hypercoagulable state Assessment and Plan: F/U thrombophilia workup, can be follow up outpatient. Continue antiplatelet therapy. Status: Acute (2) Leukocytosis Assessment and Plan: likely reactive Status: Acute
[2017-04-21] MEDS: (Novolin R) Insulin Human Regular 100 units/ml vial SC SCH ×2 (08:20→11:32)
[2017-04-21 09:01] VITALS: BP 98/78; PULSE 70; RESP 14; TEMP 98; O2SAT 98
--- NOTE | 2017-04-21 09:02 | CP.PCM.DIS ---
Provider - Provider Date of Admission: 04/18/17 07:48 Attending physician: Zev Caldera DO Primary care physician: [facility] Consults: Cardiology Dr. Harris Hematology Dr. Karan Griffith Time Spent in preparation of Discharge (in minutes): 40 Hospital Course - Lab Results Lab Results: Micro Results 04/18/17 14:00 Nose MRSA Culture (Admit) - Final MRSA NOT DETECTED Most Recent Lab Values WBC 11.0 K/uL (4.8-10.8) H 04/20/17 06:13 RBC 4.07 Mil/uL (3.80-5.20) 04/20/17 06:13 Hgb 12.5 g/dL (11.0-16.0) 04/20/17 06:13 Hct 36.0 % (34.0-47.0) 04/20/17 06:13 MCV 88.4 fL (81.0-99.0) 04/20/17 06:13 MCH 30.7 pg (27.0-31.0) 04/20/17 06:13 MCHC 34.8 g/dL (33.0-37.0) 04/20/17 06:13 RDW 13.7 % (11.5-14.5) 04/20/17 06:13 Plt Count 356 K/uL (130-400) 04/20/17 06:13 MPV 8.9 fL (7.2-11.7) 04/20/17 06:13 Neut % (Auto) 64.6 % (50.0-75.0) 04/20/17 06:13 Lymph % (Auto) 18.8 % (20.0-40.0) L 04/20/17 06:13 [place] % (Auto) 12.2 % (0.0-10.0) H 04/20/17 06:13 Eos % (Auto) 3.5 % (0.0-4.0) 04/20/17 06:13 Baso % (Auto) 0.9 % (0.0-2.0) 04/20/17 06:13 Neut # 7.1 K/uL (1.8-7.0) H 04/20/17 06:13 Lymph # 2.1 K/uL (1.0-4.3) 04/20/17 06:13 Edmonson # 1.3 K/uL (0.0-0.8) H 04/20/17 06:13 Eos # 0.4 K/uL (0.0-0.7) 04/20/17 06:13 Baso # 0.1 K/uL (0.0-0.2) 04/20/17 06:13 PT 11.2 SECONDS (9.7-12.2) 04/18/17 07:40 INR 1.0 04/18/17 07:40 APTT 27 SECONDS (21-34) 04/18/17 07:40 Sodium 136 mmol/L (132-148) 04/20/17 06:13 Potassium 4.9 mmol/L (3.6-5.2) 04/20/17 06:13 Chloride 100 mmol/L (98-107) 04/20/17 06:13 Carbon Dioxide 27 mmol/L (22-30) 04/20/17 06:13 Anion Gap 15 (10-20) 04/20/17 06:13 BUN 12 mg/dL (7-17) 04/20/17 06:13 Creatinine 0.7 MG/DL (0.7-1.2) 04/20/17 06:13 Est GFR ( Amer) > 60 04/20/17 06:13 Est GFR (Non-Af Amer) > 60 04/20/17 06:13 POC Glucose (mg/dL) 153 mg/dL (65-110) H 04/21/17 07:17 Random Glucose 155 mg/dL (65-105) H 04/20/17 06:13 Calcium 8.9 mg/dl (8.6-10.4) 04/20/17 06:13 Phosphorus 3.6 mg/dL (2.5-4.5) 04/20/17 06:13 Magnesium 1.9 mg/dL (1.6-2.3) 04/20/17 06:13 Total Bilirubin 0.5 mg/dL (0.2-1.3) 04/20/17 06:13 AST 33 U/L (14-36) 04/20/17 06:13 ALT 39 U/L (9-52) 04/20/17 06:13 Alkaline Phosphatase 67 U/L (38-126) 04/20/17 06:13 Troponin I 0.4190 ng/mL (0.00-0.120) H* 04/18/17 07:40 Total Protein 6.6 g/dL (6.3-8.3) 04/20/17 06:13 Albumin 3.4 g/dL (3.5-5.0) L 04/20/17 06:13 Globulin 3.2 gm/dL (2.2-3.9) 04/20/17 06:13 Albumin/Globulin Ratio 1.1 (1.0-2.1) 04/20/17 06:13 Blood Type A POSITIVE 04/18/17 07:40 Antibody Screen Negative 04/18/17 07:40 - Hospital Course Hospital Course: Hospitalist Progress Note (Patient was seen and examined at 8:30 AM 04/21/17) 52 year old female was recently admitted for STEMI and underwent Cardiac Catheterization with stent placement x 2 in the RCA on 04/13/17 and then discharged to home on 04/16/17. Patient was readmitted on 04/18/17 for evaluation of chest pain and was found to have STEMI. A CODE HEART was called and Cardiac Catheterization revealed occlussion of the prior to stents in the RCA. These 2 areas underwent angioplasty and a 3rd stent was placed distally to these two. Patient was monitored in the ICU. She has been cleared by Roll Tester Dr. Harris for discharge. She has been provided with a 6 week supply of Brillinta and it was stressed to her that she is to never run out this medication as this will likely cause reocclusion of the stents. Also explained to her that if she could not afford to pay out of pocket for this medication, then she is to follow up with [facility] PRIOR to running out of the medication to then switch to Plavix (loading dose of 600 mg then 75 mg PO 1x/day ). This was thoroughly explained to her with the assistance of [place] translation and patient expressed understanding. Please see the individual Assessment and Plans below for further details. Please also see the medical record for this admission for further details. Currently upon FULL ROS: NO chest pain NO palpitations NO SOB/Cough/Wheezing NO paresthesias NO diaphoresis NO extremity/jaw pain NO lightheadedness/dizziness Had a bowel movement this morning Exam: General: AAOx3, NAD HEENT: NCA, EOMI, PERRLA, NO cervical lymphadenopathy, NO thyromegaly, NO pharngeal erythema/exudate Cardio: NS1 and NS2, NO M/R/G Resp: CTA B/L, NO R/R/W GI: BSx4, Soft, NT, ND, NO HSM, NO guarding/rebound tenderness Ext: Capillary Refill is 2 seconds, NO edema, Pulses are strong and equal Neuro: CN II through XII Assessment and Plan: 1). ACS in patient with recent GA with Stent x 2 placement in RCA (04/13/17) S/P insertion of Stent #3 in distal RCA 04/18/17 ASA 81 mg PO 1x/day Brilinta 91 mg PO 2x/day Crestor 20 mg PO 1x/day HOLDING DIGNA I and Beta Darren considering the low blood pressure I spoke with Roll Tester Dr. Harris on 04/19/17 and he informed me that escrow representative from [facility] is coming on 04/20/17 to provide patient with 1 month free samples of Brilinta and to help her arrange for 1 year free supply. However as patient does not have a SS#, she did not qualify. Dr. Harris provided her with a 2 week supply from his office and our [email or web address] provided her with a 4 week supply and these are in her position at the time of discharge. Workup by Franchise Specialist Dr. Percy Griffith for hypercoagulable state: F/U Antiphospholipid Ab, Factor V Leiden, and Prothrombin Gene will need to be followed up through the [facility]. 2). HTN Please see Assessment and Plan #1 Metoprolol ER 25 mg PO 1x/day Rx given 3). DM 2 HOLDING oral med during hospital admissionconsidering the recent ACS RISS Rx for Metformin 850 mg PO 1x/day given 4). Leukocytosis NO fever WBC is trending down and there is no shift Monitor 5). HLD Crestor as above 6). Constipation Patient is already on Colace 100 mg PO BID and 1 dose of Dulcolax 5 mg PO was given 04/20/17. Patient had a bowel movement this morning 04/21/17. The following instructions were explained to patient via [place] Translation and a copy in [place] will be provided to her: 1). Schedule follow up with the [facility] Floor B of [address] in [place] for the week of by calling [phone]. They will help you coordinate your care. 2). Schedule follow up with Roll Tester Dr. Harris for week of 04/23/17 by calling his office at [phone]. You also need to call his office at least 1 week PRIOR to running out of Brillinta. 3). If you can not continue to afford to pay for Brillinta on your own, please notify the [facility] at least 1 week prior to running out of Brillinta therefore you may be switched to another medication. 4). You were given 6 week supply of Brillinta. Please take 1 tablet by mouth with breakfast and 1 tablet by mouth with dinner. 5). The following prescriptions were given to you. Please have them filled at your pharmacy today: Metformin 850 mg, 1 tablet by mouth 1x/day (breakfast), Disp #30, NO refills Metoprolol ER 25 mg, 1 tablet by mouth 1x/day (breakfast), Disp #30, NO refills Atorvastatin 40 mg, 1 tablet by mouth 1x/day (dinner), Disp #30, NO refills Asprin 81 mg, 1 tablet by mouth 1x/day (breakfast), Disp #30, NO refills 6). You will need to have your blood work that is pending at the time of your discharge (hypercoagulable workup) followed up through the [facility]. 7). You will need to be cleared to return to work by the [facility] and Cardiology Dr. Harris. 8). Please take care and be well. Zev Caldera D.O. Discharge Exam - Head Exam Head Exam: NORMOCEPHALIC Discharge Plan - Follow Up Plan Condition: CRITICAL Disposition: HOME/ ROUTINE
[2017-04-21] MEDS ORDERED: Pneumococcal 23-Valent Vaccine IM ONE ×2 (10:00→10:30)
--- NOTE | 2017-04-21 21:29 | CARD ---
APPROVED REPORT EKG Measurement Heart [id number] <Conclusion> Normal sinus rhythm Cannot rule out Anterior infarct, age undetermined Abnormal ECG
[2017-04-22 18:02] LABS: CARDIOLIPIN AB (IGA) <11 APL (<=11)
[2017-04-23 02:52] LABS: B2 GLYCOPROTEIN I AB(IGA) 24 SAU (<=20); B2 GLYCOPROTEIN I AB(IGG) <9 SGU (<=20); B2 GLYCOPROTEIN I AB(IGM) <9 SMU (<=20)
[2017-04-23 04:48] LABS: PHOSPHATIDYLSERINE AB IGA <20 U/mL (<20); PHOSPHATIDYLSERINE AB IGM <25 U/mL (<25)
--- NOTE | 2017-05-01 20:01 | CARD ---
APPROVED REPORT EKG Measurement Heart [id number] <Conclusion> Normal sinus rhythm Normal ECG
--- NOTE | 2017-05-01 20:25 | CARD ---
APPROVED REPORT EKG Measurement Heart [id number] [id number] <Conclusion> Sinus rhythm with complete heart block and Junctional bradycardia ST elevation, consider inferior injury or acute infarct ACUTE ND / STEMI Consider right ventricular involvement in acute inferior infarct Abnormal ECG
--- NOTE | 2017-05-21 09:04 | CARDCATH ---
PROCEDURE DATE: 04/18/2017 Procedure performed at [facility] [employer]: Cardiac catheterization. BRIEF HISTORY: The patient is a 52-year-old woman who had an inferior ST elevation RI four days prior to this admission and had percutaneous coronary stent implanted to the right coronary artery. Immediately after that procedure, she had reocclusion of the stent that required repeat cardiac catheterization and balloon angioplasty to the same vessel. The patient was discharged home and now presents with similar complaints with elevation of ST segments in the inferior lead. After explaining the risks and benefits of the procedure, the patient was brought to the oil laboratory analyst as an emergency. The patient was prepped and draped in the usual sterile fashion. The right femoral artery was assessed and standard catheters were used to image the coronaries. The patient was treated with dual antiplatelets and heparin during the procedure. FINDINGS OF CATHETERIZATION: 1. The left main artery patent. 2. Left anterior descending artery, mild diffuse disease. 3. Left circumflex artery, [id number] diffuse disease in the range of 40% to 50%. 4. The right coronary artery, 99% thrombotic occlusion of her prior stent. Using the right coronary guiding catheter, balloon angioplasty of the previously placed stents were done multiple times and stenosis was reduced from 99% to 0%. Distal to the stent, there appeared to be luminal irregularity and a new stent was placed at the edge of the previous right coronary artery stents and dilated to nominal pressures. Postprocedure injections revealed a patent right coronary artery with LOURDES [address]-segment elevations resolved, the patient's symptoms improved and the patient was transferred to ICU for ongoing monitoring and care. IMPRESSION: 1. Reocclusion of recently placed right coronary artery stents. 2. Successful angioplasty of occluded stents. Additional stent placement at the distal edge of the previous stents with adventism of LOURDES [address]-segment elevation and symptoms. Nicanor Harris MD
== END 2017-04-21 11:45 | disposition home or self-care (01) | DRG 246 ==
LOC: C.ER 07:20 → C.9I 07:48
PROVIDERS: ADMIT Family Medicine; ATTEND Family Medicine
PROC: 027034Z Dilation of Coronary Artery, One Artery with Drug-eluting Intraluminal Device, Percutaneous Approach (ICD-10-PCS; principal; 2017-04-18)
PROC: 4A023N7 Measurement of Cardiac Sampling and Pressure, Left Heart, Percutaneous Approach (ICD-10-PCS; 2017-04-18)
PROC: B2151ZZ Fluoroscopy of Left Heart using Low Osmolar Contrast (ICD-10-PCS; 2017-04-18)
PROC: B2111ZZ Fluoroscopy of Multiple Coronary Arteries using Low Osmolar Contrast (ICD-10-PCS; 2017-04-18)
DX: T82.855A Stenosis of coronary artery stent, initial encounter (principal); I22.1 Subsequent ST elevation (STEMI) myocardial infarction of inferior wall; I21.19 ST elevation (STEMI) myocardial infarction involving other coronary artery of inferior wall; D68.51 Activated protein C resistance; D68.59 Other primary thrombophilia; E11.9 Type 2 diabetes mellitus without complications; D72.829 Elevated white blood cell count, unspecified; I10 Essential (primary) hypertension; E78.5 Hyperlipidemia, unspecified; Y71.1 Therapeutic (nonsurgical) and rehabilitative cardiovascular devices associated with adverse incidents; I25.10 Atherosclerotic heart disease of native coronary artery without angina pectoris; K59.00 Constipation, unspecified; Z79.82 Long term (current) use of aspirin; Z79.84 Long term (current) use of oral hypoglycemic drugs; Z82.3 Family history of stroke; Z83.3 Family history of diabetes mellitus; Z79.899 Other long term (current) drug therapy